=== PATIENT | male | born 1960 | race Caucasian/White ===

== ENCOUNTER 2017-11-17 10:17 | Day surgery (SDC) | payer OTHER ==
[~2017-11-17] VITALS: Ht 170.2 cm; Wt 76.7 kg
[~2017-11-17 10:17] MED LIST: ALLO300 PO; COLCHICINE0.6 MG PO
== END 2017-11-17 12:14 | disposition home or self-care (01) ==
LOC: ORSCMMR 10:17 → ORD 11:30 → ORSCMMR 12:14
PROVIDERS: Internal Medicine Gastroenterology
PROC: 0DBM8ZX Excision of Descending Colon, Via Natural or Artificial Opening Endoscopic, Diagnostic (ICD-10-PCS; principal; 2017-11-17 11:30)
PROC: 0DBK8ZX Excision of Ascending Colon, Via Natural or Artificial Opening Endoscopic, Diagnostic (ICD-10-PCS; principal; 2017-11-17 11:30)
PROC: 0DBN8ZX Excision of Sigmoid Colon, Via Natural or Artificial Opening Endoscopic, Diagnostic (ICD-10-PCS; principal; 2017-11-17 11:30)
DX: Z12.11 Encounter for screening for malignant neoplasm of colon (principal); K63.5 Polyp of colon; D12.2 Benign neoplasm of ascending colon; D12.4 Benign neoplasm of descending colon; K64.8 Other hemorrhoids; Z87.891 Personal history of nicotine dependence; Z79.899 Other long term (current) drug therapy
CPT/HCPCS: 88305; J7120

== ENCOUNTER 2022-09-13 09:12 | Day surgery (SDC) | payer OTHER ==
[~2022-09-13] VITALS: Ht 170.2 cm; Wt 70.8 kg
[2022-09-13] MEDS ORDERED: NAPR500 (09:28)
[2022-09-13] MEDS ORDERED: LOSA50 (09:28)
[2022-09-13] MEDS ORDERED: SILD50TA (09:28)
== END 2022-09-13 11:30 | disposition home or self-care (01) ==
LOC: ORSCSDS 09:12
PROVIDERS: Surgery
PROC: 0DH63UZ Insertion of Feeding Device into Stomach, Percutaneous Approach (ICD-10-PCS; principal; 2022-09-13 10:15)
DX: C10.8 Malignant neoplasm of overlapping sites of oropharynx (principal); I10 Essential (primary) hypertension; Z87.891 Personal history of nicotine dependence; Z79.899 Other long term (current) drug therapy
CPT/HCPCS: C1769; J0690; J2704; J7120

== ENCOUNTER 2022-11-03 02:04 | Day surgery (SDC) | payer OTHER ==
[~2022-11-03 02:04] MED LIST changes: +LOSA50 PO; +NAPR500; +Norco 5-325 Ta1 EACH PO; +ONDA4 PO; +SILD50TA
== END 2022-11-03 12:06 | disposition home or self-care (01) ==
LOC: ATC 02:04
DX: E86.0 Dehydration (principal); C10.8 Malignant neoplasm of overlapping sites of oropharynx
CPT/HCPCS: 96360; J7030

== ENCOUNTER 2023-01-21 11:39 | Inpatient (IN) | payer OTHER ==
[~2023-01-21] VITALS: Ht 170.2 cm; Wt 63.1 kg
[2023-01-21] VITALS (26 sets, daily range): BP systolic 126–172; BP diastolic 74–111
[2023-01-21 13:10] LABS: Albumin, Blood 2.7 g/dL (3.4-5.0); Albumin/Globulin Ratio 0.5 (0.8-1.8); Bilirubin, Total 0.3 mg/dL (0.1-1.0); Bun/Creatinine Ratio 26.9 (12.0-20.0); Calcium, Blood 9.9 mg/dL (8.5-10.1); Creatinine, Blood 0.67 mg/dL (0.60-1.20); Globulin, Blood 5.2 g/dL (2.2-4.0); Hematocrit 36.3 % (37.0-53.0); Hemoglobin 12.4 g/dL (13.5-17.5); Mean Corpuscular HGB 32.4 pg (26.0-34.0); Mean Corpuscular HGB Conc 34.2 g/dL (31.5-36.5); Mean Corpuscular Volume 95 fL (80-100); Mean Platelet Volume 9.7 fL (9.1-12.4); Platelet Count 434 K/mm3 (150-400); Potassium, Blood 4.9 mmol/L (3.5-5.5); Red Blood Cell Count 3.83 M/mm3 (4.30-5.90); Total Protein, Blood 7.9 g/dL (6.4-8.2); White Blood Cell Count 10.14 K/mm3 (4.00-11.30)
[2023-01-21 13:17] LABS: International Normalized Ratio 1.05
[2023-01-21] MEDS ORDERED: [UNRECOGNIZED DRUG - CODE] PO (13:50)
[2023-01-21 14:04] LABS: BAND PERCENT MAN 2 % (0-8); BASOPHILS PERCENT MAN 1 % (0-2); EOSINOPHILS PERCENT MAN 1 % (0-6); LYMPHOCYTES PERCENT MAN 7 % (21-46); MONOCYTES ABSOLUTE MAN 1.11 K/mm3 (0.16-1.47); MONOCYTES PERCENT MAN 11 % (4-13); NEUTROPHILS ABSOLUTE MAN 8.11 K/mm3 (1.96-9.15); SEG NEUTROPHILS PERCENT MAN 78 % (41-73); TOTAL CELLS COUNTED 100
--- NOTE | 2023-01-21 16:08 | NUR ---
01/21/23 1608 Sheryl Pretty LIDOCAIN 1% INJECTED INTO THE OP SITE BY DR. VAUGHN. A TOTAL OF 21ML USED.
--- NOTE | 2023-01-21 18:12 | NUR ---
PT TAKEN TO RADIOLOGY CT TECHNOLOGIST AT APPROXIMATELY 1745. VS STABLE AT TIME OF TRANSPORT, AND DAUGHTER AT BEDSIDE, ACCOMPANIED PT TO [facility].
--- NOTE | 2023-01-21 18:22 | NUR ---
Summary. Pt arrived in ICU at approximately 1538. Report received from OR staff at bedside. Pt awake, responding to questions and following commands. Trach in place, site wnl, no bleeding noted. Pt coughing red sputum up through trach tube occasionally. Blowby humidified 02 at 25% put in place by RT. Dr. Judd in to see pt at approximately 1600. Pt taken to labor service representative at 1745 for procedure, family at bedside, see note. Pt vitals stable at time of transport. See assessment for further details, will report off to reji BRUNO prior to pt returning from labor service representative.
[2023-01-22] VITALS (23 sets, daily range): BP systolic 106–149; BP diastolic 74–92
[2023-01-22 04:06] LABS: BASOPHILS ABSOLUTE AUTO 0.05 K/mm3 (0.00-0.23); BASOPHILS PERCENT AUTO 0 % (0-2); EOSINOPHILS ABSOLUTE AUTO 0.01 K/mm3 (0.00-0.68); EOSINOPHILS PERCENT AUTO 0 % (0-6); Hematocrit 31.9 % (37.0-53.0); Hemoglobin 11.1 g/dL (13.5-17.5); IMMATURE GRAN ABSOLUTE AUTO 0.07 K/mm3 (0.00-0.10); IMMATURE GRAN PERCENT AUTO 1 % (0-1); LYMPHOCYTES ABSOLUTE AUTO 0.44 K/mm3 (0.84-5.20); LYMPHOCYTES PERCENT AUTO 3 % (21-46); MONOCYTES ABSOLUTE AUTO 1.08 K/mm3 (0.16-1.47); MONOCYTES PERCENT AUTO 8 % (4-13); Mean Corpuscular HGB 32.4 pg (26.0-34.0); Mean Corpuscular HGB Conc 34.8 g/dL (31.5-36.5); Mean Corpuscular Volume 93 fL (80-100); Mean Platelet Volume 9.4 fL (9.1-12.4); NEUTROPHILS ABSOLUTE AUTO 12.47 K/mm3 (1.96-9.15); NEUTROPHILS PERCENT AUTO 88 % (41-73); Platelet Count 416 K/mm3 (150-400); RDW Coefficient Variation 12.1 % (11.7-14.2); RDW Standard Deviation 41.7 fL (35.1-46.3); Red Blood Cell Count 3.43 M/mm3 (4.30-5.90); White Blood Cell Count 14.12 K/mm3 (4.00-11.30)
[2023-01-22 05:05] LABS: Albumin, Blood 2.3 g/dL (3.4-5.0); Albumin/Globulin Ratio 0.5 (0.8-1.8); Bilirubin, Total 0.5 mg/dL (0.1-1.0); Bun/Creatinine Ratio 20.7 (12.0-20.0); Calcium, Blood 9.1 mg/dL (8.5-10.1); Creatinine, Blood 0.73 mg/dL (0.60-1.20); Globulin, Blood 4.5 g/dL (2.2-4.0); Magnesium, Blood 1.8 mg/dL (1.6-2.4); Potassium, Blood 4.5 mmol/L (3.5-5.5); Total Protein, Blood 6.8 g/dL (6.4-8.2)
--- NOTE | 2023-01-22 06:20 | NUR ---
SHIFT SUMMARY: Pt arrived from orthodontic lab technician right at shift change. Trach site clean/dry/intact, on trach mask. Right femoral post- cath site is clean/dry/intact and soft. Medicated for pain with morphine x1 and fentanyl x1 overnight. Pt has a moderate amount of maroon, thick sputum out of trach. Cleaned site multiple times. Voiding independently with urinal. Vitals stable overnight, mild tachycardia in the low 100s.
--- NOTE | 2023-01-22 06:53 | NUR ---
Assumed care. Report received from reji BRUNO. Pt sleeping in bed at time of report. On RA, NS infusing at 75 ml/hr. R/angioseal site wnl. Pt on trach collar, 25%. No acute needs. Will continue to monitor.
[2023-01-22] MEDS ORDERED: LOSARTAN POTAS100 M1 PO (11:25)
[2023-01-22] MEDS ORDERED: NAPR500 PO (11:26)
[2023-01-22] MEDS ORDERED: ONDA4ODT MM (11:27)
[2023-01-22] MEDS ORDERED: SILD50TA PO (11:28)
[2023-01-22 15:39] LABS: BASOPHILS ABSOLUTE AUTO 0.06 K/mm3 (0.00-0.23); BASOPHILS PERCENT AUTO 0 % (0-2); EOSINOPHILS ABSOLUTE AUTO 0.02 K/mm3 (0.00-0.68); EOSINOPHILS PERCENT AUTO 0 % (0-6); Hematocrit 34.3 % (37.0-53.0); IMMATURE GRAN ABSOLUTE AUTO 0.05 K/mm3 (0.00-0.10); IMMATURE GRAN PERCENT AUTO 0 % (0-1); LYMPHOCYTES ABSOLUTE AUTO 0.57 K/mm3 (0.84-5.20); LYMPHOCYTES PERCENT AUTO 4 % (21-46); MONOCYTES ABSOLUTE AUTO 0.78 K/mm3 (0.16-1.47); MONOCYTES PERCENT AUTO 6 % (4-13); Mean Corpuscular HGB 32.8 pg (26.0-34.0); Mean Corpuscular Volume 94 fL (80-100); Mean Platelet Volume 9.1 fL (9.1-12.4); NEUTROPHILS ABSOLUTE AUTO 12.37 K/mm3 (1.96-9.15); NEUTROPHILS PERCENT AUTO 89 % (41-73); Platelet Count 487 K/mm3 (150-400); RDW Coefficient Variation 12.2 % (11.7-14.2); RDW Standard Deviation 41.9 fL (35.1-46.3); Red Blood Cell Count 3.66 M/mm3 (4.30-5.90); White Blood Cell Count 13.85 K/mm3 (4.00-11.30)
--- NOTE | 2023-01-22 18:38 | NUR ---
Shift summary. Pt rested in bed for most of the shift. Up to chair during PT, able to remain up for about an hour. Pt able to tolerate trach collar off without any change in oxygen saturation levels, even during exhertion. PCU status. Cultures taken, antibiotics started per Dr. Harrison, see chart. No acute events this shift, pt slightly tachy and htn during shift, VS otherwise normal. See chart for further details. Will continue to monitor and report off to reji BRUNO.
--- NOTE | 2023-01-22 19:15 | NUR ---
ASSUMED CARE PATIENT LYING IN BED WITH EYES CLOSED. TRACH COLAR IN PLACE. VANCOMYCIN INF TO RT AC. AND DAUGHTER AT BEDSIDE. PATIENT OPENS EYES TO VERBAL AND PHYSICAL STIMULI. FOLLOWS COMMANDS AND ANSWERS QUESTIONS WITH GESTURES. MAKES NEEDS KNOWN TO STAFF WITH CALL LIGHT. MONITOR SHOWS SINUS TACHYCARDIA WITH RATE IN 120'S. SPO2 GREATER THAN 90%. RT GROIN ACCESS SITE HAS OPSITE IN PLACE-C/D/I. NO SWELLING, BLEEDING, HEMATOMA OR PAIN NOTED. REPORT COMPLETED WITH KIANA NAVARRETE.
[2023-01-22 21:18] LABS: Source, Urine Clean Catch
[2023-01-22 21:26] LABS: Appearance, Urine Clear (Clear); Bilirubin, Urine Neg (Neg); Blood, Urine 1+ (Neg); Color, Urine Yellow (P-Yellow); Glucose Qualitative, Urine Neg (Neg); Ketones, Urine Neg (Neg); Leukocyte Esterase, Urine Neg (Neg); Nitrite, Urine Neg (Neg); Protein, Urine 1+ (Neg); Specific Gravity, Urine 1.015 (1.003-1.022); Urobilinogen, Urine NORM (Normal)
[2023-01-22 21:39] LABS: Bacteria Not Seen /hpf; Red Blood Cells, Urine 0-2 /hpf (0-2); Squamous Epithelial Cells Few /hpf (Few); White Blood Cells, Urine 0-2 /hpf (0-5)
[2023-01-23] VITALS (13 sets, daily range): BP systolic 107–166; BP diastolic 67–119
[2023-01-23 03:25] LABS: BASOPHILS ABSOLUTE AUTO 0.06 K/mm3 (0.00-0.23); BASOPHILS PERCENT AUTO 1 % (0-2); EOSINOPHILS ABSOLUTE AUTO 0.11 K/mm3 (0.00-0.68); EOSINOPHILS PERCENT AUTO 1 % (0-6); Hematocrit 31.2 % (37.0-53.0); Hemoglobin 10.7 g/dL (13.5-17.5); IMMATURE GRAN ABSOLUTE AUTO 0.04 K/mm3 (0.00-0.10); IMMATURE GRAN PERCENT AUTO 0 % (0-1); LYMPHOCYTES ABSOLUTE AUTO 0.48 K/mm3 (0.84-5.20); LYMPHOCYTES PERCENT AUTO 4 % (21-46); MONOCYTES ABSOLUTE AUTO 0.83 K/mm3 (0.16-1.47); MONOCYTES PERCENT AUTO 7 % (4-13); Mean Corpuscular HGB 32.5 pg (26.0-34.0); Mean Corpuscular HGB Conc 34.3 g/dL (31.5-36.5); Mean Corpuscular Volume 95 fL (80-100); Mean Platelet Volume 8.8 fL (9.1-12.4); NEUTROPHILS ABSOLUTE AUTO 9.63 K/mm3 (1.96-9.15); NEUTROPHILS PERCENT AUTO 86 % (41-73); Platelet Count 379 K/mm3 (150-400); RDW Coefficient Variation 12.1 % (11.7-14.2); RDW Standard Deviation 42.3 fL (35.1-46.3); Red Blood Cell Count 3.29 M/mm3 (4.30-5.90); White Blood Cell Count 11.15 K/mm3 (4.00-11.30)
[2023-01-23 03:50] LABS: Bun/Creatinine Ratio 27.8 (12.0-20.0); Creatinine, Blood 0.68 mg/dL (0.60-1.20); Phosphorus, Blood 2.4 mg/dL (2.5-4.9); Potassium, Blood 4.4 mmol/L (3.5-5.5)
--- NOTE | 2023-01-23 04:12 | NUR ---
SHIFT SUMMARY PATIENT SLEPT THROUGHOUT NIGHT. MEDICATED FOR PAIN PER EMAR. TRACH DRESSING CHANGED BY RT. REMAINED AT BEDSIDE T/O SHIFT. PATIENT WAS ABLE TO MAKE NEEDS KNOWN TO STAFF. NO ACUTE EVENTS OVERNIGHT.
--- NOTE | 2023-01-23 08:40 | NUR ---
AM NOTE... ASSUMED CARE OF PT AT 0700, PT IS A&Ox4. TRACH IS STABLE WITH A 25% BLOW BY WITH O2 SATS >90% L/S CLEAR T/O. TRACH HAS COPIOUS AMOUNTS OF THICK LIGHT JEAN-BAPTISTE SECRETIONS, TRACH CARE AND SUCTIONING DONE THIS AM. HE IS IN SR W/PACs AND PVCs IN THE 90'S. BP IS STABLE WITH MAPS >65. BT PRESENT AND HYPOACTIVE, ABD IS SOFT AND NONTENDER TO PALPATION. PEG TUBE IS PATENT AND BOLUS FEEDS STARTED. PT'S IS AT THE BEDSIDE, TRACH CLEANING AND EDUCATION PROVIDED TO THE . WILL CONTINUE TO MONITOR.
--- NOTE | 2023-01-23 13:41 | NUR ---
TRANSFER.... PT TRANSFER TO MEDICAL FLOOR. REPORT GIVEN TO JACKY SNOW RN. ALL OF PT'S BELONGINGS PACKED AND SENT WITH THE PT. PT'S VS STABLE.
--- NOTE | 2023-01-23 16:20 | NUR ---
ASSUMED CARE IN 303 PT ARRIVED FROM THE ICU VIA WC BROUGHT UP BY INVESTMENT DIRECTOR AND HIS , TRANSFERRED TO HIS NEW BED, SUCTION SET UP, HUMIDIFIER BROUGHT UP AND SETTINGS VERIFIED BY RT. SMALL AMT OF SECRETIONS PRESENT ON TRACH AT TIME OF ARRIVAL, PER INVESTMENT DIRECTOR THIS HAS BEEN NORMAL FOR HIM, THIS WAS CLEANED UP AND FRESH GAUZE PLACED AROUND TRACH, SUCTIONING PERFORMED BUT ONLY ABLE TO GET SCANT AMOUNT. PT AND HIS DENY ANY NEEDS AT TIME OF ARRIVAL.
--- NOTE | 2023-01-23 18:59 | NUR ---
SHIFT SUMMARY S/P TRACH PLACEMENT, A/OX4, VSS, TOLERATING TUBE FEEDS, NPO, NEEDING INTERMINTENT SUCTION TO CLEAR TRACH SECRETIONS, AT BEDSIDE ASSISTING WITH ADL CARE. NO EVENTS THIS SHIFT, CALL LIGHT IN REACH.
--- NOTE | 2023-01-23 22:22 | NUR ---
STARTED PEG TUBE FEED - LAST ONE FOR THE NIGHT - PER KIANA LAZO LAST FEED WAS STARTED LATE. , IN ROOM CONCERNED THAT THE FEED IS GETTING STARTED LATER THAN NORMAL, REPORTED THIS WAS DUE TO LAST FEED STARTED LATE. AND PT REQUESTING FEED BE PLACE ON KANGEROO PUMP, NOT BOLUS/GRAVITY FEED. ADMINISTERED 2 BOTTLES TWO DASHAWN HN WITH 1 CUP WATER AT 400 CC HOUR PER CURRENT PUMP SETTINGS WITH 60CC FLUSH. REPORTED TO VIOLET BRUNO ABOVE.
--- NOTE | 2023-01-24 03:32 | NUR ---
SHIFT KATHI, PT AT THIS TIME RESTING IN BED, AT BEDSIDE IN RECLINER, OTHER FAMILY MEMBERS HERE CAMMIELYER. FAMILY VERY INVOVED IN PT CARES AND WANTING TO KNOW WHAT IS BEING GIVEN AND CCCALL LIGN FOR PT NEEDS, FAMILY VERY WORRIED ABOUT PT AND VERY PROTECTIVE. GAVE PT TORADOL FOR PAIN. LATTER ANOTHER RN THAT I HAD ASKED TO HELP GIVE PT SOME MEDS CAFME OUT AND STATED FAMILY UPSET DUE TO IN ICU THEY GAVE TORADOK AND HYDROCODONE AT THE SAME TIME. FAMILY NOR PT HAD TOLD OR NOTIFIED THIS NURSE OF HOW PT USUALY GIVEN HIS MEDS. THIS NURSE CHARGE AND FLOAT NURSE THAT WAS HELPING, IN ROOM WITH PT DOING THINGS FOR PT SEVERAL TIMES WELL RT IN ROOM MULTIPLE TIMES. FAMILY VERY ANXIOUS. PT HAD A INCONT LIQ BM AND SAID SHE DID NOT WANT PT TO HAVE A PROBIOTIC AGAIN TRYED TO EXSPLANE THAT THE PROBIOTIC WAS TO HELP PREVENT THE DIARRIA, AND PROB WAS CHANGE IN PTS FEEDING FORMULA OR ANITBIOTIC. PT VERY PRIVIET AND ONLY WANTS TO HELP WITH BATHROOM AND BATHING NOT STAFF. CALL LIGHT IN REACH.
[2023-01-24 04:28] VITALS: BP 121/72
[2023-01-24 04:47] LABS: BASOPHILS ABSOLUTE AUTO 0.05 K/mm3 (0.00-0.23); BASOPHILS PERCENT AUTO 1 % (0-2); EOSINOPHILS ABSOLUTE AUTO 0.43 K/mm3 (0.00-0.68); EOSINOPHILS PERCENT AUTO 4 % (0-6); Hematocrit 29.7 % (37.0-53.0); Hemoglobin 10.3 g/dL (13.5-17.5); IMMATURE GRAN ABSOLUTE AUTO 0.04 K/mm3 (0.00-0.10); IMMATURE GRAN PERCENT AUTO 0 % (0-1); LYMPHOCYTES ABSOLUTE AUTO 0.43 K/mm3 (0.84-5.20); LYMPHOCYTES PERCENT AUTO 4 % (21-46); MONOCYTES ABSOLUTE AUTO 0.79 K/mm3 (0.16-1.47); MONOCYTES PERCENT AUTO 7 % (4-13); Mean Corpuscular HGB 32.6 pg (26.0-34.0); Mean Corpuscular HGB Conc 34.7 g/dL (31.5-36.5); Mean Corpuscular Volume 94 fL (80-100); Mean Platelet Volume 9.3 fL (9.1-12.4); NEUTROPHILS ABSOLUTE AUTO 9.17 K/mm3 (1.96-9.15); NEUTROPHILS PERCENT AUTO 84 % (41-73); Platelet Count 397 K/mm3 (150-400); RDW Coefficient Variation 12.1 % (11.7-14.2); RDW Standard Deviation 41.8 fL (35.1-46.3); Red Blood Cell Count 3.16 M/mm3 (4.30-5.90); White Blood Cell Count 10.91 K/mm3 (4.00-11.30)
[2023-01-24 05:15] LABS: Vancomycin, Trough 10.3 ug/mL (5.0-10.0)
[2023-01-24 05:33] LABS: Bun/Creatinine Ratio 35.8 (12.0-20.0); Calcium, Blood 8.7 mg/dL (8.5-10.1); Creatinine, Blood 0.59 mg/dL (0.60-1.20); Magnesium, Blood 1.9 mg/dL (1.6-2.4); Phosphorus, Blood 2.5 mg/dL (2.5-4.9); Potassium, Blood 3.8 mmol/L (3.5-5.5)
[2023-01-24 07:37] VITALS: BP 122/73
[2023-01-24 15:21] VITALS: BP 126/84
--- NOTE | 2023-01-24 19:50 | NUR ---
SHIFT SUMMARY PT A&OX4 AND COOPERATIVE OF CARE. AT BEDSIDE T/O DAY AND HELPS WITH PT CARE AND COMMUNICATION. RT WORKED WITH PT AND SUCTIONED TRACH TUBE NEEDED. PT C/O PAIN IN NECK TODAY AND WAS MEDICATED PER EMAR WITH GOOD EFFECT. IN AFTERNOON PT STATED HE WANTED TRACH REMOVED. DR RG CAME TO TALK WITH PT IN AFTERNOON ABOUT WISHES. DR VAUGHN CALLED IN EVENING TO TALK WITH PT AND ABOUT CONCERNS. PT AND STATED DR VAUGHN WAS ABLE TO ANSWER ALL THEIR QUESTIONS AND CONCERNS. PT TOLERATING PEG TUBE FEEDINGS. VSS. BED IN LOWEST POSITION AND CALL LIGHT IN REACH.
[2023-01-24 20:05] VITALS: BP 127/78
--- NOTE | 2023-01-25 03:41 | NUR ---
SHIFT SUMMERY, PT RESTING IN BED, PT APPEARS TO BE COMFORTABLE. PT MEDICATED FOR PAIN X 2 THIS NIGHT. PTS AT BEDSIDE ON RECLINER SLEEPING BUT AWAKING TO HELP PT WITH HIS NEEDS. AND PT SEEM MORE COMFORTABLE TONIGHT AND LESS SUSPECT OF STAFF AND PTS TX. CALL LIGHT IN REACH.
[2023-01-25 04:43] VITALS: BP 125/83
[2023-01-25 05:32] LABS: Bun/Creatinine Ratio 32.5 (12.0-20.0); Calcium, Blood 8.4 mg/dL (8.5-10.1); Creatinine, Blood 0.62 mg/dL (0.60-1.20); Magnesium, Blood 1.9 mg/dL (1.6-2.4); Phosphorus, Blood 3.5 mg/dL (2.5-4.9); Potassium, Blood 3.8 mmol/L (3.5-5.5)
[2023-01-25 07:06] VITALS: BP 134/82
--- NOTE | 2023-01-25 12:29 | NUR ---
PT FAMILY REQUESTING H&H DUE TO CONCERN OF INTERNAL BLEEDING SPOUSE NOTED PT DOES NOT TAKE COZZAR AT HOME ANYMORE, SPOUSE WOULD LIKE MED TO BE DISCONTINUED.
[2023-01-25 15:19] VITALS: BP 130/82
--- NOTE | 2023-01-25 17:08 | NUR ---
SHIFT SUMMARY PT A&OX4 AND IN PLEASENT MOOD T/O SHIFT. FAMILY IN AND ASSISTING W/ CARE T/O SHIFT. TUBE FEEDINGS ORDERED. VSS. TRACH IN PLACE. VSS. CALL LIGHT W/IN REACH. NPO, SWALLOW EVAL THIS SHIFT. PLAN FOR VOICEBOX ON FRIDAY-PT WRITING FOR COMMUNICATION AT THIS TIME.
[2023-01-25 19:27] VITALS: BP 147/87
--- NOTE | 2023-01-25 20:58 | NUR ---
TUBE FEEDS PT REFUSED HIS 2000 TUBE FEED. PT LAST FEED WAS AROUND 1400 PER PT. I WENT TO CHECK RESIDUAL AND PULLED BACK A FULL SYRINGE ABOUT 100 CC BEFORE HE ASKED ME TO STOP CHECKING HIS RESIDUAL, RESIDUAL REINSTILLED. PT STATED THAT HE STILL FELT FULL AND DID NOT WANT HIS TUBE FEED THIS EVENING.
--- NOTE | 2023-01-25 21:13 | NUR ---
SWELLING R SIDE OF NECK-MD NOTIFIED PT AND HAVE CONCERNS ABOUT INCREASED PAIN AND SWELLING ON THE RIGHT SIDE OF HIS NECK. TRACH IS IN PLACE AND AIRWAY IS NOT COMPROMISED AT THIS TIME, SATS WNL, LUNGS ARE DIMISNIED. NO ACUTE DISTRESS AT THIS TIME. PT STATES THAT THE SAME SWELLING HAD HAPPENDED BEFORE AT HOME AND THAT THE REACTION WAS SEVERE, AND SHE IS CONCERNED FOR THE SAME OUTCOME THIS TIME. [facility] RN REPORTS THAT SHE NOTIFIED DR. GAYLE SHORTLY BEFORE SHIFT CHANGE, AND HE STATED THAT HE WOULD BE UP TO ROUND ON PT AND ASSESS. DR. GAYLE STILL HAS NOT BEEN UP TO SEE PT. PT AND STATE THAT IF NO ONE IS ABLE TO ADDRESS TONIGHT THAT THEY WOULD LIKE TO BE TRANSFERRED. I NOTIFIED PT AND FAMILY THAT I HAD DISCUSSED WITH CHARGE NURSE AND THAT I WOULD CALL DR. GAYLE TO REMIND HIM AND GET AND ETA OF WHEN HE WOULD BE UP TO SEE THEM. DR. LONG CALLED SHORTLY AFTER DISCUSSION WITH PT AND . HE STATES THAT HE WILL BE UP TO SEE PT IN ABOUT AN HOUR, PT AND NOTIFIED. I LET THEM KNOW THAT AUTO RENTAL SUPERVISOR WOULD BE NOTIFIED IF PROVIDER STILL HAD NOT BEEN UP TO SEE THEM. THEY EXPRESSED UNDERSTANDING AND AGREEMENT WITH PLAN.
--- NOTE | 2023-01-25 21:41 | NUR ---
PROVIDER IN ROOM DR GAYLE IN TO ASSESS PT FOR RIGHT FACIAL SWWELLING AT 2140. HE ORDERED A STAT H&H AND ASKED THAT DR. VAUGHN BE CONTACTED IN THE AM FOR FURTHER ASSESSEMENT OF PT. LABS ORDERED AND NURSE NOTIFY ENTERED FOR DAYSHIFT RN TO FOLLOW UP WITH DR. VAUGHN. NO ADDITIONAL ORDERS FOR FACIAL SWELLING.
[2023-01-25 22:48] LABS: Hematocrit 32.1 % (37.0-53.0); Hemoglobin 11.1 g/dL (13.5-17.5)
[2023-01-26 04:53] VITALS: BP 138/90
--- NOTE | 2023-01-26 04:57 | NUR ---
SHIFT SUMMARY PT HAS RIGHT JAW SWELLING, SKIN RED INFLAMMED AND PT REPORTS PAIN. PT AND FAMILY AND CONCERED WITH SWELLING. PT AND FAMILY CONCERNS WERE ADDRESSED THIS SHIFT. DR. GAYLE NOTIFIED AND ROUNDED ON PT THIS SHIFT, PLEASE SEE PRIOR NURSES NOTE. LABS ORDERED, H&H STABLE. DR. GAYLE WOULD LIKE DR. VAUGHN TO ASSESS PT TODAY TO FURTHER ADDRESS THE SWELLING. SWELLING HAS REMAIN UNCHANGED T/O SHIFT AND AIRWAY IS NOT COMPROMISED. TRACH WITH BLOWBY O2. SATS WNL. THICK CLEAR SPUTUM, WITH NO BLOOD NOTED. PT REFUSED 2000 FEEDS AND REPORTS THAT HE FELT FULL. ONE FULL SYRINGE OF RESIDUAL WAS PULLED AND REINSTILLED. IV ANTIBIOTICS CONTINUED ORDERED. LOW GRADE FEVER, VITALS OTHERWISE STABLE. AT BEDSIDE AND ATTENDS TO PT NEEDS. MEDICATED FOR PAIN PRN PER EMAR. BED IN LOWEST POSITION CALL LIGHT WITHIN REACH.
[2023-01-26 07:10] LABS: BASOPHILS ABSOLUTE AUTO 0.07 K/mm3 (0.00-0.23); BASOPHILS PERCENT AUTO 1 % (0-2); EOSINOPHILS ABSOLUTE AUTO 0.41 K/mm3 (0.00-0.68); EOSINOPHILS PERCENT AUTO 4 % (0-6); Hematocrit 29.4 % (37.0-53.0); Hemoglobin 10.2 g/dL (13.5-17.5); IMMATURE GRAN ABSOLUTE AUTO 0.16 K/mm3 (0.00-0.10); IMMATURE GRAN PERCENT AUTO 2 % (0-1); LYMPHOCYTES ABSOLUTE AUTO 0.47 K/mm3 (0.84-5.20); LYMPHOCYTES PERCENT AUTO 5 % (21-46); MONOCYTES ABSOLUTE AUTO 0.96 K/mm3 (0.16-1.47); MONOCYTES PERCENT AUTO 10 % (4-13); Mean Corpuscular HGB 32.1 pg (26.0-34.0); Mean Corpuscular HGB Conc 34.7 g/dL (31.5-36.5); Mean Corpuscular Volume 93 fL (80-100); Mean Platelet Volume 8.7 fL (9.1-12.4); NEUTROPHILS ABSOLUTE AUTO 7.79 K/mm3 (1.96-9.15); NEUTROPHILS PERCENT AUTO 79 % (41-73); Platelet Count 468 K/mm3 (150-400); RDW Coefficient Variation 12.1 % (11.7-14.2); RDW Standard Deviation 41.1 fL (35.1-46.3); Red Blood Cell Count 3.18 M/mm3 (4.30-5.90); White Blood Cell Count 9.86 K/mm3 (4.00-11.30)
[2023-01-26 07:23] VITALS: BP 130/84
[2023-01-26 07:29] LABS: Albumin/Globulin Ratio 0.5 (0.8-1.8); Bilirubin, Total 0.3 mg/dL (0.1-1.0); Bun/Creatinine Ratio 21.7 (12.0-20.0); Calcium, Blood 8.9 mg/dL (8.5-10.1); Creatinine, Blood 0.64 mg/dL (0.60-1.20); Globulin, Blood 4.3 g/dL (2.2-4.0); Potassium, Blood 4.4 mmol/L (3.5-5.5); Total Protein, Blood 6.3 g/dL (6.4-8.2)
[2023-01-26 16:14] VITALS: BP 132/82
--- NOTE | 2023-01-26 17:52 | NUR ---
SHIFT SUMMARY PT A&OX4 AND IN PLEASENT MOOD T/O SHIFT. TUBE FEEDING ORDERED. TRACH CARE PROVIDED. IND IN ROOM. PAIN MEDICATED PER EMAR. NECK CT PERFORMED THIS SHIFT, PLAN TO CHEST CT TOMORROW DUE TO CONTRAST. VSS. CALL LIGHT W/IN REACH. PT STATES HE WANTS TO DC TOMORROW AFTER SEEING DR. VAUGHN.
[2023-01-26 19:28] VITALS: BP 121/83
[2023-01-27 04:18] VITALS: BP 123/83
--- NOTE | 2023-01-27 04:29 | NUR ---
SHIFT SUMMARY: CRISTOPHER IS A&OX4. VSS, NO ACUTE EVENTS THIS SHIFT. AT BEDSIDE WHO PROVIDES CARES AND ADMINISTERED THE BEDTIME FEED. SHE ALSO ASSISTED HIM TO SHOWER THIS SHIFT. IV TO LEFT HAND AND R AC PATENT. TRACHEOSTOMY PATENT AND PT USING BLOWBY VIA MASK, RT PERFORMING SCHEDULED SUCTION. PT HAS BEEN COUGHING SOME THICK WHITE/YELLOW SPUTUM THROUGH TRACH. HE IS INDEPENDENT IN THE ROOM, G-TUBE PATENT, DENIES ANY DIFFICULTY URINATING. HE IS NPO. PT IS LYING IN BED WITH THE CALL LIGHT IN REACH. HE HAS BEEN MEDICATED WITH TORADOL AND MORPHINE THIS SHIFT WHICH HE REPORTED PROVIDED ADEQUATE RELIEF OF THE JAW PAIN/SWELLING. WCTM UNTIL REPORT IS GIVEN TO DAY SHIFT RN.
[2023-01-27 07:32] VITALS: BP 117/73
--- NOTE | 2023-01-27 12:00 | NUR ---
Initial Pal Care visit made to pt and at bedside. Ching was providing care and cleaning around pt's new trach as I entered the room. Pt awake, alert and fully participating in the conversation. expressed misunderstanding that Pal Care was the same as hospice. We reviewed differences and that hospice was indeed palliative care but there were many other components of palliative care outside of hospice and that I was not there to discuss hospice but to discuss anything that was important to Derick and Ching. Pt expressed relief that he was going home today and that Dr Suarez would be removing trach later this week. They'd had a number of conversations with Drs over the past 24-48 hours that clarified and helped them feel more at ease with pt's current situation with his throat cancer and post tx sequelae. Of concern, is a possible lung nodule noted recently and pt awaiting a PET scan for further diagnostics. PET scan has been rescheduled for 2 weeks from now, which is also a relief to pt/. Pt does not have a clear understanding of his prognosis from oncology team and he has not seen them since early Spring when chemo/rad tx was finished. His own statement of prognosis is, "I'm not going anywhere". Cihng and Derick both indicate they are hopeful and planning on curative tx and their desire to seek all possible treatment, regardless of PET scan results. Time spent listening and offering support, advised on questions to ask of their providers for future advanced care planning. Pt wanted to try drinking pepsi. He is NPO. However, Dr Suarez told pt, and RN he could have PO intake and pt is being d/c'd home. Pt gets most of intake thru gtube. With RN's permission, I trialed pt with small spoonful/sip of pepsi. HOB raised and pt coached to [facility] with very small sip off spoon to start. No s/s of aspiration, cough, change in voice noted and pt reported he did not feel or sense any fluid in airway. I asked pt to only try small amounts of PO intake with either his or staff in the room at this time. He verbalized understanding. Pt and deny any further needs currently.
[2023-01-27] MEDS ORDERED: Docusate S50 MG/5 ML PO (12:25)
[2023-01-27] MEDS ORDERED: VISBIOME 112.51 EACH PO (12:26)
[2023-01-27] MEDS ORDERED: AMOCLA875 PO (12:26)
[2023-01-27] MEDS ORDERED: IBU800 MG PO (12:27)
[2023-01-27] MEDS ORDERED: Prevacid Soluta30 MG PO (12:28)
--- NOTE | 2023-01-27 16:09 | NUR ---
DISCHARGE PT A&OX4. TRACH CARE/INSTRUCTIONS PROVIDED[facility]/ [facility]. PLAN TO FOLLOW UP W/ JOHANA FOR PROBABLE REMOVAL TOMORROW. F/U PET SCAN SCHEDULED. VSS. SPOUSE PROVIDING TRANSPORT.
== END 2023-01-27 14:00 | disposition home health service (06) | DRG 11 ==
LOC: ER 11:39 → ICUE 14:07 → ER 14:07 → ICUE 14:07 → SURS 14:07 → ER 14:07 → ICUE 14:08 → MEDS 01-23 15:15 → ENPENDDIS 01-27 11:14 → MEDS 01-27 14:00
PROVIDERS: Emergency Medicine; Family Medicine; Internal Medicine; Otolaryngology; Student in an Organized Health Care Education/Training Program; ADMIT Internal Medicine
PROC: B3191ZZ Fluoroscopy of Right External Carotid Artery using Low Osmolar Contrast (ICD-10-PCS; 2023-01-21)
PROC: B41F1ZZ Fluoroscopy of Right Lower Extremity Arteries using Low Osmolar Contrast (ICD-10-PCS; 2023-01-21)
PROC: B44LZZZ Ultrasonography of Femoral Artery (ICD-10-PCS; 2023-01-21)
PROC: 0B113Z4 Bypass Trachea to Cutaneous, Percutaneous Approach (ICD-10-PCS; 2023-01-21)
PROC: 0CJS8ZZ Inspection of Larynx, Via Natural or Artificial Opening Endoscopic (ICD-10-PCS; 2023-01-21)
PROC: B3131ZZ Fluoroscopy of Right Common Carotid Artery using Low Osmolar Contrast (ICD-10-PCS; principal; 2023-01-21 12:15)
PROC: 3E03329 Introduction of Other Anti-infective into Peripheral Vein, Percutaneous Approach (ICD-10-PCS; 2023-01-22)
DX: C10.8 Malignant neoplasm of overlapping sites of oropharynx (principal); A41.3 Sepsis due to Hemophilus influenzae; E43 Unspecified severe protein-calorie malnutrition; E87.1 Hypo-osmolality and hyponatremia; R91.8 Other nonspecific abnormal finding of lung field; R01.1 Cardiac murmur, unspecified; R91.1 Solitary pulmonary nodule; R04.1 Hemorrhage from throat; J40 Bronchitis, not specified as acute or chronic; I51.89 Other ill-defined heart diseases; I10 Essential (primary) hypertension; M10.9 Gout, unspecified; H65.21 Chronic serous otitis media, right ear; J39.2 Other diseases of pharynx; N52.9 Male erectile dysfunction, unspecified; Z93.1 Gastrostomy status; Z92.3 Personal history of irradiation; Z79.899 Other long term (current) drug therapy; Z79.891 Long term (current) use of opiate analgesic; Z87.891 Personal history of nicotine dependence; Z68.22 Body mass index [BMI] 22.0-22.9, adult; Z92.21 Personal history of antineoplastic chemotherapy
CPT/HCPCS: 31720; 36217; 36222; 36227; 36415; 70491; 70498; 71045; 75774; 80048; 80053; 80202; 81001; 83735; 84100; 84145; 85014; 85018; 85025; 85610; 85730; 87040; 87070; 87077; 87185; 87205; 87449; 92610; 93306; 94760; 94762; 96374-59; 96375; 96376; 97110; 97162; 97166; 99152; 99285-25; A9270; C1760; C1769; C1887; C1894; G0378; J0295; J1644; J1885; J2001; J2250; J2270; J3010; J3370; J7030; J7050; J7120; Q9967

== ENCOUNTER → 2023-02-25 | Outpatient (CLI) | payer OTHER ==
[~2023-02-25] MED LIST changes: +AMOCLA875 PO; +Docusate S50 MG/5 ML PO; +IBU800 MG PO; +LOSARTAN POTAS100 M1 PO; +NAPR500 PO; +ONDA4ODT MM; +Prevacid Soluta30 MG PO; +SILD50TA PO; +VISBIOME 112.51 EACH PO; +[UNRECOGNIZED DRUG - CODE] PO
== END ==
LOC: LAB 12:53 → LAB SHORT 12:53
DX: L03.316 Cellulitis of umbilicus (principal)
CPT/HCPCS: 87070; 87075; 87077; 87186; 87205

== ENCOUNTER 2023-03-12 17:00 | Inpatient (IN) | payer OTHER ==
[~2023-03-12] VITALS: Ht 170.2 cm; Wt 66.4 kg
[2023-03-12 17:35] LABS: BASOPHILS ABSOLUTE AUTO 0.06 K/mm3 (0.00-0.23); BASOPHILS PERCENT AUTO 1 % (0-2); EOSINOPHILS ABSOLUTE AUTO 0.17 K/mm3 (0.00-0.68); EOSINOPHILS PERCENT AUTO 3 % (0-6); Hematocrit 31.6 % (37.0-53.0); Hemoglobin 10.9 g/dL (13.5-17.5); IMMATURE GRAN ABSOLUTE AUTO 0.01 K/mm3 (0.00-0.10); IMMATURE GRAN PERCENT AUTO 0 % (0-1); LYMPHOCYTES ABSOLUTE AUTO 0.55 K/mm3 (0.84-5.20); LYMPHOCYTES PERCENT AUTO 9 % (21-46); MONOCYTES ABSOLUTE AUTO 0.55 K/mm3 (0.16-1.47); MONOCYTES PERCENT AUTO 9 % (4-13); Mean Corpuscular HGB 31.4 pg (26.0-34.0); Mean Corpuscular HGB Conc 34.5 g/dL (31.5-36.5); Mean Corpuscular Volume 91 fL (80-100); Mean Platelet Volume 9.7 fL (9.1-12.4); NEUTROPHILS ABSOLUTE AUTO 5.14 K/mm3 (1.96-9.15); NEUTROPHILS PERCENT AUTO 79 % (41-73); Platelet Count 373 K/mm3 (150-400); RDW Coefficient Variation 13.5 % (11.7-14.2); RDW Standard Deviation 44.9 fL (35.1-46.3); Red Blood Cell Count 3.47 M/mm3 (4.30-5.90); White Blood Cell Count 6.48 K/mm3 (4.00-11.30)
[2023-03-12 18:02] LABS: Albumin, Blood 2.7 g/dL (3.4-5.0); Albumin/Globulin Ratio 0.6 (0.8-1.8); Bilirubin, Total 0.2 mg/dL (0.1-1.0); Bun/Creatinine Ratio 31.7 (12.0-20.0); Creatinine, Blood 0.69 mg/dL (0.60-1.20); Globulin, Blood 4.3 g/dL (2.2-4.0); Potassium, Blood 4.1 mmol/L (3.5-5.5)
[2023-03-12 20:34] LABS: International Normalized Ratio 1.04; Prothrombin Time Results 10.9 Sec (9.7-11.5)
[2023-03-12 21:00] VITALS: BP 138/95
[2023-03-12 21:15] VITALS: BP 138/92
[2023-03-12 22:44] VITALS: BP 127/98
[2023-03-12 22:45] VITALS: BP 124/99
[2023-03-12 23:13] LABS: Hematocrit 29.2 % (37.0-53.0); Hemoglobin 9.5 g/dL (13.5-17.5); Mean Corpuscular HGB 30.9 pg (26.0-34.0); Mean Corpuscular HGB Conc 32.5 g/dL (31.5-36.5); Mean Corpuscular Volume 95 fL (80-100); Mean Platelet Volume 9.6 fL (9.1-12.4); Platelet Count 410 K/mm3 (150-400); RDW Coefficient Variation 13.7 % (11.7-14.2); RDW Standard Deviation 47.8 fL (35.1-46.3); Red Blood Cell Count 3.07 M/mm3 (4.30-5.90)
[2023-03-12 23:30] VITALS: BP 148/92
--- NOTE | 2023-03-12 23:30 | NUR ---
PT TRANSFERS FROM PCU TO ICU 4 SECONDARY TO EXPECTORATING OR EXPELLING BLOOD FROM MOUTH. PT TRANSFERS HIMSELF TO BED FROM PCU BE AND IS EXTREMELY ANXIOUS. PULLS OFF HIS NON-REBREATHER MASK. NEEDS TO BE ASSISTED TO KEEP MASK IN PLACE. DR VAUGHN TO ROOM. DR WOLFE IN ROOM, RESIDENT DR JOSEPH, ORAL SUCTIONING DONE WITH RETURN OF AME BLOOD WITH SOME CLOTS NOTED.
[2023-03-12 23:45] VITALS: BP 141/91
[2023-03-12 23:47] LABS: International Normalized Ratio 1.05
[2023-03-13] VITALS (83 sets, daily range): BP systolic 80–141; BP diastolic 63–92
--- NOTE | 2023-03-13 00:20 | NUR ---
DR VAUGHN DOES EMERGENT TRACHEOTOMY AND PLACES 6 SYRIAC SCHILEY TRACH WITH INNER CANNULA. PT MEDICATED WITH 1 MG VERSED, AND [address] ESCAMILLA COMES TO ROOM. PT PLACED TO VENT. PROPOFOL FOR SEDATION. DR BOYER TO PERFORM INTERVENTION FOR ARTERIAL ABLATION.
--- NOTE | 2023-03-13 00:26 | NUR ---
ADMISSION / TRANSFER TO ICU PT ADMITTED TO UNIT AT 2119. AXO. SPEAKING FULL SENTENCES. ARRIVES WITH EMESIS BAG WITH BLOOD IN IT. DAUGHTER WITH PT AND SPOUSE TO ROOM WITHN 10 MINUTES OF ADMISSION. SPOUSE ANSWERING HEALTH HX QUESTIONS. VSS AT THIS TIME. PT NOT IN DISTRESS. IGNITION ASSESMENT COMPLETED. FAMILY AND PT EDUCATED REGARDING FIRE PREVENTION AND [employer]'S TOBACCO FREE/IGNITION SOURCE FREE ENVIRONMENT. PT C/O PAIN / NAUSEA @2199. RN TO [facility] TO OBTAIN MEDS. PT BEGAN COUGHING UP BLOOD CLOTS, PER SPOUSE IS WHAT HAD BEEN HAPPENING AT HOME AND IN ED. THIS RN ASSISTING PATIENT IN EXPECTORATING "BLOODY CHUNKS" SOME OF THIS PRESENTED CLOTS BUT MOST PRESENTED FLESH CHUNKS (PER SPOUSE THESE HAD BEEN COMING OUT POST RADIATION TREATMENT TO THROAT). 2224, THIS RN SUCTIONING MOUTH AND OUTPUT INCREASED. TENACIOUS OUTPUT NOTED IN BACK OF THROAT AT THIS POINT. 2230 PT BEGING TO HAVE MORE LIQUID BLOODY OUTPUT WITH COUGHING. BEGINNING TO BECOME MORE FREQUENT. 2240 DR VAUGHN CALLED SITUATION RAPIDLY CHANGING. DR VAUGHN BEGAN TO SPEAK TO HOSPITALIST AND FACILITATE NEXT TREATMENT PATHWAY. 224 ICU PIPE AND BOILER COVERS SUPERVISOR TO ROOM. NURSING FORMING MACHINE ADJUSTER TO ROOM. ALONG WITH RESIDENT AND HOSPITALIST. NS BOLUS STARTED. PT PLACED ON 15L HIFLO O2. ORDERS FOR BLOODWORK AND TRANSFER TO ICU. DR VAUGHN DRIVING TO HOSPITAL. 2254 PT TO ICU. TRANSFERRED. PT ACCIDENTALLY PULLED IV. 18G'S PLACED IN BILAT ARMS. BEDSIDE REPORT BEING GIVEN. DR VAUGHN TO ROOM. ANESTHESIOLOGY AND RETAIL SPECIAL EVENT ASSOCIATE AND DR BOYER NOTIFIED AND EMERGENCY PATHWAYS FACILITATED BY NURSING FORMING MACHINE ADJUSTER. AT THIS TIME. THIS RN RELINQUISHED CARE OF PT TO [place] [facility] STILL OPERATOR.
--- NOTE | 2023-03-13 02:00 | NUR ---
PT TO AND HAS RETURNED FROM [facility] WHERE HE RECEIVED COIL TO LINGUAL ARTERY. THIS RN FOLLOWS PT THROUGH INTERVENTION. MAINTING VENT AND SEDATION. PT RETURNS TO ROOM ICU 4. TO ROOM. AND SHE IS TO ROOM IN FOR THE NIGHT. BEDBATH DONE TO CLEAN PT FROM BLOOD.
[2023-03-13 04:21] LABS: Source, Urine Foley catheter
[2023-03-13 04:25] LABS: BASOPHILS ABSOLUTE AUTO 0.03 K/mm3 (0.00-0.23); BASOPHILS PERCENT AUTO 0 % (0-2); EOSINOPHILS PERCENT AUTO 0 % (0-6); Hematocrit 25.8 % (37.0-53.0); Hemoglobin 8.7 g/dL (13.5-17.5); IMMATURE GRAN ABSOLUTE AUTO 0.08 K/mm3 (0.00-0.10); IMMATURE GRAN PERCENT AUTO 0 % (0-1); LYMPHOCYTES ABSOLUTE AUTO 0.31 K/mm3 (0.84-5.20); LYMPHOCYTES PERCENT AUTO 2 % (21-46); MONOCYTES PERCENT AUTO 6 % (4-13); Mean Corpuscular HGB 31.3 pg (26.0-34.0); Mean Corpuscular HGB Conc 33.7 g/dL (31.5-36.5); Mean Corpuscular Volume 93 fL (80-100); Mean Platelet Volume 9.8 fL (9.1-12.4); NEUTROPHILS ABSOLUTE AUTO 16.44 K/mm3 (1.96-9.15); NEUTROPHILS PERCENT AUTO 92 % (41-73); Platelet Count 393 K/mm3 (150-400); RDW Coefficient Variation 13.4 % (11.7-14.2); RDW Standard Deviation 46.2 fL (35.1-46.3); Red Blood Cell Count 2.78 M/mm3 (4.30-5.90); White Blood Cell Count 17.96 K/mm3 (4.00-11.30)
[2023-03-13 04:43] LABS: Appearance, Urine Clear (Clear); Bilirubin, Urine Neg (Neg); Blood, Urine Neg (Neg); Color, Urine Yellow (P-Yellow); Glucose Qualitative, Urine Neg (Neg); Ketones, Urine Neg (Neg); Leukocyte Esterase, Urine Neg (Neg); Nitrite, Urine Neg (Neg); Protein, Urine 2+ (Neg); Urobilinogen, Urine NORM (Normal); pH, Urine 6.5 (5.0-8.0)
[2023-03-13 04:59] LABS: Bacteria Few /hpf; Granular Casts 0-2 /lpf (0); Squamous Epithelial Cells Rare /hpf (Few)
--- NOTE | 2023-03-13 06:30 | NUR ---
GOOD ORAL HYGEINE HAS BEEN PERFORMED MULTIPLE TIME THIS MORNING. HAVE SUCTIONED BLOOD CLOTS AND AME BLOOD. PT HAS HAD SOMEWHAT SOFT BLOOD PRESSURES. PT RECEIVING FLUID CHALLENGE. WILL CONTINUE TO MONITOR PT, AND WILL REPORT OFF TO ONCOMING RN.
--- NOTE | 2023-03-13 07:45 | NUR ---
Assumed care of pt at 0700. Bedside report received from Bean BRUNO. Pt's spouse, Ching, at bedside. On ventilator with ACVC 16/400/7/30%. SpO2 90% or greater. ETCO2 34. Propofol 40 mcg/kg/min.
--- NOTE | 2023-03-13 17:00 | NUR ---
SUMMARY Neuro: Off sedation. No signs of delirium. Answers yes/no questions appropriately. Follows commands. Does not reach toward trach. Out of restraints. Cough and gag reflexes present. 3 mm pupils, PERRL. Musc: Moves all extremities with equal strength and range of motion. Able to assist with repositioning. Resp: #6 shiley, uncuffed trach in place. Trach collar for oxygenation. SpO2 98% with 30 % FiO2. Trach care done this shift by this RN. Scant bloody drainage to previous drain sponge. Card: SR-ST per monitor. HR 90-105. BP stable. No edema. Color, sensation, pulses, capillary refill equal BUE/BLE. GI: Continuous tube feeds started, pt tolerating well. TF as prescribed. No BM this shift : Good urine output from guerrero catheter. Skin: Unchanged from initial assessment. Psych: Family at bedside t/o shift.
--- NOTE | 2023-03-13 21:00 | NUR ---
ASSUMED CARE AT 1900 PT RESTING IN BED AND IS AT BEDSIDE. HE IS ORIENTED X4 AND TIRED; RESPONSIVE TO VERBAL STIMULI; HE IS ABLE TO ANSWER Y/N QUESTIONS WITH HEAD NODS AND WRITES DOWN HIS OTHER NEEDS. AFEBRILE. TRACH COLLAR IN PLACE WITH SETTINGS 7L AND FIO2 30%; NO SPUTUM FROM TRACH NOTED; TRACH IS A 6.0 SHILEY (CUFFED, AND UNFENESTRATED). HR 100-120'S. SBP 100-130'S. VHP INFUSING VIA G-TUBE AT 45ML/HR (GOAL) WITH 30ML FLUSH Q4HR. MROALES INPLACE AND DRAINING TO GRAVITY. RT GROIN SITE DRESSING C/D/I; NO SIGNS OF BLEEDING OR HEMATOMA. SEE SHIFT ASSESSMENT FOR FULL ASSESSMENT. PT PAIN MANAGEMENT BECOMING MORE CHALLENGING; PRN FENTANYL IS BEING GIVEN MORE FREQUENTLY AND ISN'T BRINING THE PAIN DOWN WELL. CALL MADE TO DR ESCAMILLA WHO PROVIDED NEW ORDERS FOR HOME REGIMEN OF PAIN MEDICATION.
[2023-03-14] VITALS (45 sets, daily range): BP systolic 101–148; BP diastolic 63–92
[2023-03-14 04:56] LABS: Hematocrit 19.8 % (37.0-53.0); Hemoglobin 6.6 g/dL (13.5-17.5); Mean Corpuscular HGB 30.4 pg (26.0-34.0); Mean Corpuscular HGB Conc 33.3 g/dL (31.5-36.5); Mean Corpuscular Volume 91 fL (80-100); Mean Platelet Volume 9.8 fL (9.1-12.4); Platelet Count 267 K/mm3 (150-400); RDW Coefficient Variation 13.7 % (11.7-14.2); RDW Standard Deviation 45.1 fL (35.1-46.3); Red Blood Cell Count 2.17 M/mm3 (4.30-5.90); White Blood Cell Count 8.03 K/mm3 (4.00-11.30)
[2023-03-14 05:17] LABS: Bun/Creatinine Ratio 29.2 (12.0-20.0); Calcium, Blood 8.2 mg/dL (8.5-10.1); Creatinine, Blood 0.68 mg/dL (0.60-1.20); Magnesium, Blood 1.8 mg/dL (1.6-2.4); Phosphorus, Blood 2.3 mg/dL (2.5-4.9)
--- NOTE | 2023-03-14 05:24 | NUR ---
UPDATE CALLED DR GAYLE REGARDING THIS AM HBG OF 6.6, NEW ORDERS PROVIDED TO TRANSFUSE 1 UNIT OF PRBC'S.
--- NOTE | 2023-03-14 06:57 | NUR ---
END OF SHIFT SUMMARY NO ACUTE EVENTS OVERNIGHT; HE WAS ABLE TO GET SOME SLEEP T/O THE NIGHT. HE CONT TO BE A/O X4 AND ANSWERS Y/N QUESTIONS APPROPRIATLY. PAIN IS BETTER MANAGED WITH LIQUID NORCO BUT CONT TO BE NEEDED AROUND THE CLOCK. ON TRACH COLLAR ALL NIGHT ON 7L AND FIO2 30%. AFEBRILE. HR 90-120'S. BP STABLE WITH SBP 110-130'S. VHP INFUSING AT GOAL. MORALES IN PLACE AND DRAINING TO GRAVITY. 1 UNIT OF PRBC'S INFUSING NOW AT 125ML/HR. REPORT GIVEN TO AM RN.
--- NOTE | 2023-03-14 07:15 | NUR ---
Assumed care of pt at 0700. Report received from Kera BRUNO. Pt A&O x 4. Answers questions, follows commands, verbalizes needs. Pleasant and cooperative with care. SpO2 90% or greater with 26% LPM on trach collar. SR per monitor. BP stable.
--- NOTE | 2023-03-14 18:39 | NUR ---
SUMMARY Neuro: A&O x 4. Answers questions, follows commands, verbalizes needs. Pleasant and cooperative with care. Musc/ADLs: Moves all extremities with equal strength and range of motion. Able to assist with ADLs. CHG bath completed today. Sat in recliner for approx 2 hours. Mobilizes with supervision only. Does not attempt to get out of bed without assistance. Resp: Initially on 26% FiO2. Currently on humidified room air with trach collar. Trach care complete by this RN and inner cannula changed by respiratory therapist. Suctioned once. Small amount of red clots. Cardiac: SR-ST, rate 95-105. BP stable. Color, sensation, pulses, capillary refill equal BUE and BLE. GI: Changed from continuous tube feeds to bolus feeds. Tolerating well. No BM this shift. : Islas catheter removed today. Voiding into catheter without difficulty. Skin: Unchanged from initial assessment. Psych: Family at bedside continuously. Ingition: Pt and family educated on ignition risk with oxygen use. Verbalized understanding. Hourly rounding complete.
--- NOTE | 2023-03-14 20:00 | NUR ---
ASSUMPTION OF CARE PT APPEARS COMFORTABLE, SITTING IN ROOM WITH A VISITOR AND . A&OX4. TRACH IN PLACE. 6.0 SHILEY CUFFED AND NON FENESTRATED WITH TRACH COLLAR. HUMIDIFIED MEDICAL AIR TO TRACH, O2 SATS IN MID 90S. LUNG SOUNDS CLEAR/DIMINISHED. NSR IN 80S. PT REPORTS STOMACH FEELS VERY FULL FROM PREVIOUS FEEDING AND CONTRIBUTES THIS TO NEW FIBER SUPPLEMENT. WOULD LIKE TO SKIP EVENING FEED. STOMACH FEELS NON DISTENDED UPON ASSESSMENT, AND NO PAIN PER PT. TYPICALLY MANAGES FEEDINGS AT HOME. USING URINAL APPROPRIATELY. PT IS COMPLAINING OF PAIN IN MOUTH D/T BLISTERS AND INFECTED TASTE BUD. MEDICATED WITH MAGIC MOUTH WASH.
[2023-03-15] VITALS (24 sets, daily range): BP systolic 125–159; BP diastolic 71–97
[2023-03-15 03:40] LABS: BASOPHILS ABSOLUTE AUTO 0.06 K/mm3 (0.00-0.23); BASOPHILS PERCENT AUTO 1 % (0-2); EOSINOPHILS ABSOLUTE AUTO 0.29 K/mm3 (0.00-0.68); EOSINOPHILS PERCENT AUTO 4 % (0-6); Hematocrit 24.4 % (37.0-53.0); Hemoglobin 8.2 g/dL (13.5-17.5); IMMATURE GRAN ABSOLUTE AUTO 0.02 K/mm3 (0.00-0.10); IMMATURE GRAN PERCENT AUTO 0 % (0-1); LYMPHOCYTES ABSOLUTE AUTO 0.62 K/mm3 (0.84-5.20); LYMPHOCYTES PERCENT AUTO 8 % (21-46); MONOCYTES PERCENT AUTO 13 % (4-13); Mean Corpuscular HGB 30.4 pg (26.0-34.0); Mean Corpuscular HGB Conc 33.6 g/dL (31.5-36.5); Mean Corpuscular Volume 90 fL (80-100); Mean Platelet Volume 9.8 fL (9.1-12.4); NEUTROPHILS PERCENT AUTO 74 % (41-73); Platelet Count 273 K/mm3 (150-400); RDW Coefficient Variation 14.2 % (11.7-14.2); RDW Standard Deviation 46.2 fL (35.1-46.3); White Blood Cell Count 7.79 K/mm3 (4.00-11.30)
[2023-03-15 03:57] LABS: Magnesium, Blood 1.9 mg/dL (1.6-2.4); Phosphorus, Blood 3.1 mg/dL (2.5-4.9)
--- NOTE | 2023-03-15 05:13 | NUR ---
SHIFT SUMMARY NO ACUTE CHANGES OVERNIGHT. VSS. 6.0 SHILEY, NON FENESTRATED, CUFFED TRACH IN PLACE WITH HUMIDIFIED AIR ATTACHED. DID SUCTION OVERNIGHT WITH SOME BLOODY OUTPUT. NEURO STATUS UNCHANGED. REPORTS PAIN IN MOUTH STILL, HAS BEEN OCCURING FOR LAST 5 MONTHS. FENTANYL AND HYDROCODONE GIVEN Q4 WITH GOOD EFFECT. REMAINS AT BEDSIDE. HEMOGLOBIN AT 8.2 THIS AM.
--- NOTE | 2023-03-15 09:23 | NUR ---
CARE OF PT ASSUMED AT 0700. PT SLEEPING, AWAKENS TO VOICE. DENIES NASUEA, SOB. C/O PAIN 7/0 TO MOUTH AND THROAT/NECK AREA. HUMIDIFIED ROOM AIR VIA TRACH COLLAR. PT TEMP 100.2; FAN AND COOL WASH CLOTH PLACED TO FOREHEAD. DR HOLMAN NOTIFIED. BLOOD CX AND SPUTUM ORDERED. PT MEDICATED W HYDROCODONE VIA FEEDING TUBE. PT DECLINED ORAL CARE D/T PAIN; MAGIC MOUTH WASH OFFERED, PT DECLINED FOR NOW. PT'S AT BEDSIDE. FIBER HELD PER PT REQUEST IT UPSET HIS STOMACH.
--- NOTE | 2023-03-15 13:21 | NUR ---
PT COUGHING WITH SATURATION DROPPING TO MID 80% ABOUT 20MIN AFTER BEING SUCTIONED BY RT. PT SX'D VIA TRACH W SEVERAL BLOOD CLOTS REMOVED AND SMALL AMT OF FRESH APPEARING BLOOD. DR HOLMAN HAS SIGNED OFF CASE BUT NOTIFIED SHE WAS IN UNIT. CHEST XRAY WAS ORDERED. RT AT BEDSIDE. DR JOHANA ROGER. LUNGS COARSE. RT PLACED PT ON 26% O2 VIA BLEED IN OF TRACH COLLAR.
--- NOTE | 2023-03-15 13:39 | NUR ---
DR MATHEW CALLED BACK SHORTLY AFTER ANSWERING SERVICE CALLED. DR MATHEW GIVEN FULL REPORT/UPDATE. ORDERS GIVEN TO MAKE SURE CUFF IS UP (WHICH IT WAS PER RT) AND CONTINUE TO MONITOR. DR MATHEW WILL PASS INFORMATION TO DR VAUGHN. WILL SEE IF DR BOYER IS AVAILABLE IF NEEDED. DR SUMNER AT BEDSIDE AND UPDATED WELL. FIO2 AT 26%.
--- NOTE | 2023-03-15 14:49 | NUR ---
DR MATHEW AT BEDSIDE. PT DECLINES ALLOWING DR MATHEW TO LOOK WITH SCOPE DOWN BACK OF THROAT AND DOWN TRACH AT THIS TIME. PT IS GOING TO TAKE SOME TIME TO CONSIDER OPTIONS
--- NOTE | 2023-03-15 15:03 | NUR ---
PT HAS AGREED TO LET DR MATHEW LOOK DOWN TRACH W SCOPE.
--- NOTE | 2023-03-15 15:24 | NUR ---
NO BLEEDING NOTED ABOVE OR BELOW TRACH PER DR MATHEW. PT TOLERATED PROCEDURE WELL. RAHEEL KIRK RT AT BEDSIDE TEACHING PT'S FAMILY TRACH CARE.
--- NOTE | 2023-03-15 17:17 | NUR ---
PT REQUIRED SEVERAL DOSES FENTANYL AND HYDROCODONE T/O SHIFT TO CONTROL C/O PAIN TO MOUTH/THROAT/NECK. SHORTLY AFTER RT SUCTIONED PT THIS AFTERNOON PT DESATURATED INTO MID 80'S, SEVERAL LARGE CLOTS AND SMALL AMT OF RED BLOOD SUCTIONED FROM TRACH. DR MATHEW (ENT) AT BEDSIDE AFTER TO PERFORM LIMITED LOOK W BRONCHSCOPE. NO EVIDENCE OF ACTIVE BLEEDING AT THIS TIME. DR BOYER NOTIFIED; UNAVAILABLE TODAY BUT AVAILABLE TOMORROW IF NEEDED. PT INTITIALLY ON HUMIDIFIED AIR, NOW ON HUMIDIFIED O2 AT 26%. SATS >95%. GENTLE TRACH SUCTIONING ONLY PER DR MATHEW. PT'S ADMINISTERED TUBE FEEDS PER PT REQUEST. INNER CANNULA CHANGED BY RT, TRACH CARE PERFORMED BY RT WHILE EDUCATING FAMILY ON TRACH CARE. PT AND FAMILY EDUCATED ON IGNITION RISK W O2 USE, UNDERSTANDING VERBALIZED, HOURLY ROUNDING FOR IGNITION SOURCES.
--- NOTE | 2023-03-15 20:00 | NUR ---
ASSUMPTION OF CARE PT SLEEPING AT BEGINNING OF SHIFT, DAUGHTER PRESENT. RT CURRENTLY ENTERING TO DO AIRWAY TREATMENT. UPON ASSESSMENT, CRISTOPHER IS NOT IN DESTRESSED AND IS SATTING WELL. CURRENTLY ON 26% FIO2. IS HAVING SOME PRODUCTIVE COUGHING AND RN AND RT DID VISUALIZE A NICKEL SIZED CLOT. SCANT AMOUNT OF BLEEDING ON SUCTION, BUT MAJORITY OF WHAT IS BEING SUCTIONED OUT APPEARS TO BE DRIED BLOOD. PER REPORT PT DID HAVE SOME BLEEDING TODAY DURING AN AGRESSIVE SUCTION IN THE AM. ALL OTHER VSS. PT WOULD LIKE TO TRY DIFFERENT PAIN MED COMBINATION IN ATTEMPTS TO LIMIT IV FENTANYL. SPOKE WITH DR. BOBO WHO ORDERED TRAMADOL BID, WHICH PT STATES HE HAD ON LAST ADMIT. GOOD URINE OUTPUT. WOULD LIKE TO GET GOOD REST TONIGHT.
[2023-03-16] VITALS (22 sets, daily range): BP systolic 109–153; BP diastolic 66–91
[2023-03-16 03:50] LABS: BASOPHILS ABSOLUTE AUTO 0.05 K/mm3 (0.00-0.23); BASOPHILS PERCENT AUTO 1 % (0-2); EOSINOPHILS ABSOLUTE AUTO 0.35 K/mm3 (0.00-0.68); EOSINOPHILS PERCENT AUTO 5 % (0-6); Hematocrit 25.5 % (37.0-53.0); Hemoglobin 8.6 g/dL (13.5-17.5); IMMATURE GRAN ABSOLUTE AUTO 0.01 K/mm3 (0.00-0.10); IMMATURE GRAN PERCENT AUTO 0 % (0-1); LYMPHOCYTES ABSOLUTE AUTO 0.51 K/mm3 (0.84-5.20); LYMPHOCYTES PERCENT AUTO 7 % (21-46); MONOCYTES ABSOLUTE AUTO 0.85 K/mm3 (0.16-1.47); MONOCYTES PERCENT AUTO 12 % (4-13); Mean Corpuscular HGB 30.6 pg (26.0-34.0); Mean Corpuscular HGB Conc 33.7 g/dL (31.5-36.5); Mean Corpuscular Volume 91 fL (80-100); Mean Platelet Volume 9.7 fL (9.1-12.4); NEUTROPHILS ABSOLUTE AUTO 5.37 K/mm3 (1.96-9.15); NEUTROPHILS PERCENT AUTO 75 % (41-73); Platelet Count 301 K/mm3 (150-400); RDW Coefficient Variation 13.7 % (11.7-14.2); RDW Standard Deviation 45.3 fL (35.1-46.3); Red Blood Cell Count 2.81 M/mm3 (4.30-5.90); White Blood Cell Count 7.14 K/mm3 (4.00-11.30)
--- NOTE | 2023-03-16 05:35 | NUR ---
SHIFT SUMMARY PT SEEMED TO GET GOOD REST THIS EVENING. NO IV FENTANYL GIVEN, ONLY HYDROCODONE AND TRAMADOL, ON OBSERVATION THIS COMBONATION SEEMED TO HAVE GOOD EFFECT. SUCTIONING NEEDED 3X THIS SHIFT, ALL TIMES WITH SCANT, DARK BLOODY OUTPUT. INNER CANNULA CLEANED. PT REMAINS ON HUMIDIFIED AIR AT 26% FIO2. GOOD URINE OUTPUT.
--- NOTE | 2023-03-16 10:43 | NUR ---
CARE OF PT ASSUMED AT 0700. PT SLEEPING, AWAKENS TO VOICE. C/O PAIN 4/10 TO MOUTH, STATES PAIN IS BETTER OVERALL AND FEELS THAT THE ULTRAM IS WORKING WELL. HYDROCODONE GIVEN WELL. TRACH W MINIMAL SECRETIONS/DRAINAGE. GOLDIE C/D/I. PT SATS 98% ON 26% FIO2 VIA TRACH COLLAR. DR SUMNER IN TO SEE PT THIS AM AND REACHED OUT TO DR VAUGHN; DR VAUGHN TO COME IN TODAY AND CHANGE OUT TRACH IN HOPES TO BE ABLE TO DISCHARGE PT HOME TOMORROW SO THAT HE CAN MAKE APPOINTMENT W CA SPECIALIST. DR ESCAMILLA AT BEDSIDE NOW, UPDATE GIVEN. PLAN TO GET PT OOB TO CHAIR TODAY.
--- NOTE | 2023-03-16 11:39 | NUR ---
PT'S EDUCATED ON TRACH CARE AND ASSISTED WITH TRACH CARE, SHE WILL BE CARING FOR TRACH AFTER DISCHARGE. PT GIVEN CHG BATH. SBA TO CHAIR, PT STRONG AND ABLE TO BEAR WEIGHT WELL.
--- NOTE | 2023-03-16 15:59 | NUR ---
DR VAUGHN CHANGED OUT TRACH FOR 6 SHILEY UNCUFFED FENESTRATED TRACH. PASSY CAMILLA VALVE PLACED, PT ABLE TO SPEAK DESPITE SMALL AIR LEAK. OKAY FOR PT TO TAKE SMALL SIPS OF WATER TOLERATED PER DR VAUGHN. DR VAUGHN WOULD LIKE PT TO HAVE SWALLOW EVAL PRIOR TO DISCHARGE TOMORROW. DR SUMNER UPDATED.
--- NOTE | 2023-03-16 17:33 | NUR ---
PAIN MORE WELL CONTROLLED THIS SHIFT W HYDROCODONE AND ULTRAM PRN. PAIN COMPLAINTS MOSTLY TO MOUTH 4-5/10. DR VAUGHN CHANGED OUT PT'S TRACH FOR #6 SHILEY FENESTRATED UNCUFFED TRACH, PASSY CAMILLA PLACED. PT TOLERATING WELL. NO ACTIVE BLEEDING TODAY, A FEW SMALL OLD CLOTS SUCTIONED FROM TRACH. TRACH EDUCATION PROVIDED AGAIN TODAY TO PT AND PT'S . PT'S ABLE TO DEMONSTRATE TRACH CARE. PT OOB TO CHAIR TODAY FOR SEVERAL HOURS; KYLE WELL. PT OKAY TO HAVE SMALL SIPS OF WATER PER DR VAUGHN; PT KYLE WELL. PT TO HAVE SWALLOW EVAL TOMORROW PRIOR TO DISCHARGE HOME. PT AND FAMILY EDUCATED ON IGNITION RISKS INVOLVING SMOKING AND 02, BOTH VERBALIZE UNDERSTANDING; WITH HOURLY ROUNDING ON INGNITION SOURCE/RISK
--- NOTE | 2023-03-16 20:11 | NUR ---
PATIENT RESTING QUIETLY, TRACH MIDLINE WITH DRESSING CD&I. TRACH COLLAR IN PLACE WITH HUMIDIFIED AIR FIO2 36% RESP EVEN AND UNLABORED. C/O PAIN TO RIGHT JAW AND NECK, MEDICATED WITH LIQUID HYDROCODONE VIA PEG TUBE WITH GOOD RELIEF. REFUSING ORAL CARE WITH [id number] DUE TO BURNING, PATIENT USING WATER AND ORAL SUCTION FOR ORAL CARE.
--- NOTE | 2023-03-16 20:35 | NUR ---
PATIENTS IN TO SEE PATIENT. VERY SUPPORTIVE WITH CARE.
--- NOTE | 2023-03-16 21:52 | NUR ---
PATIENT AND REMINDED OF IGNITION RISK INCREASING WITH OXYGEN USE. NO IGNITION DEVISES SEEN IN ROOM.
[2023-03-17] VITALS (15 sets, daily range): BP systolic 106–134; BP diastolic 66–94
--- NOTE | 2023-03-17 05:26 | NUR ---
SUMMARY PATIENT RESTING QUIETLY. VERBALIZED HAVING DIFFICULTY SLEEPING. TRACH REMAINS MIDLINE DRESSING CD&I, OCCASIONAL MOIST COUGH WITH JEAN-BAPTISTE TO WHITE SPUTUM. CONTINUES TO HAVE RIGHT JAW AND THROAT PAIN. STRONG SMELLING BREATH. REFUSING PERIDEX MOUTH CLEANING, PATIENT ABLE TO SWISH STERILE WATER AND SPIT AND MAGIC MOUTHWASH GIVEN X1 DURING THE NIGHT. TRACH SUCTIONING WITH SMALL AMT JEAN-BAPTISTE SPUTUM. PEG TUBE FOR BOLUS FEEDING AND MEDICATIONS. PATIENT ABLE TO REPOSITION SELF IN BED FOR COMFORT WITHOUT DIFFICULTY. BOTH PATIENT AND HIS VERBALIZED UNDERSTANDING ABOUT IGNITION RISK, NO IGNITION SOURCE SEEN IN ROOM T/O NIGHT.
--- NOTE | 2023-03-17 07:31 | NUR ---
CARE ASSUMPTION DURING BEDSIDE SHIFT REPORT W ROSALIND Lauren RN THE PT IS LYING IN BED ASLEEP BUT AWOKE TO THE SOUND OF OUR VOICES. PT HAS TRACH COLLAR IN PLACE W SPO2 >92%. PT REPORTING MODERATE PAIN RELIEF AFTER NOC RN TREATED HIM PER EMAR W ULTRAM JUST PRIOR TO CHANGE OF SHIFT. PT USING THE URINAL W/O ASSISTANCE AT THIS TIME. PT HAS FAMILY AT BEDSIDE SLEEPING IN RECLINER AT THIS TIME. MONITOR SHOWING SR IN THE 70'S W OCCASIONAL PVC. PT DENYING ANY FURTHER NEEDS AT THIS TIME.
--- NOTE | 2023-03-17 09:30 | NUR ---
UPDATE PT TAKEN OFF BLOW-BY HUMIDIFIED O2 AFTER THIS RN DISCUSSED THIS WITH RT. WILL SEE HOW THE PT TOLERATES THIS HE WILL BE GOING TO IMAGING FOR BARRIUM SWALLOW.
--- NOTE | 2023-03-17 10:28 | NUR ---
UPDATE PT TAKEN TO IMAGING FOR BARRIUM SWALLOW. PROCEDURE DONE AND RECOMMENDATIONS FOR STRICT NPO MADE BY ST. PT BACK IN RM W MOM AND SPOUSE AT BEDSIDE.
[2023-03-17] MEDS ORDERED: CIPR750 PO (11:28)
[2023-03-17] MEDS ORDERED: LIDOCAINE MT (11:33)
--- NOTE | 2023-03-17 12:56 | NUR ---
DISCHARGE PT WAS EVALUATED BY PROVIDER AND DC ORDERS WERE GIVEN. PT AND SPOUSE WERE EDUCATED ON TRACH CARE/MANAGEMENT. MEDICATIONS WERE FAXED TO PHARMACY OF CHOICE AN THIS RN CONTACTED [facility] TO CONFIRM THEY RECIEVED THIS FAX. PT'S VS WERE STABLE ON RM AIR. TRACH CARE WAS PERFORMED AND IV'S DC'D. PT TAKEN OUT IN A W/C TO PRIVATE VEHICLE BEING DRIVEN BY HIS .
== END 2023-03-17 12:30 | disposition home or self-care (01) | DRG 11 ==
LOC: ER 17:00 → PCU 17:01 → ICUE 17:01 → PCU 21:23 → ICUE 22:54
PROVIDERS: Family Medicine; Internal Medicine Critical Care Medicine; Nurse Practitioner Acute Care; Student in an Organized Health Care Education/Training Program; ADMIT Internal Medicine
PROC: 30233N1 Transfusion of Nonautologous Red Blood Cells into Peripheral Vein, Percutaneous Approach (ICD-10-PCS; 2023-03-12)
PROC: 0DH63UZ Insertion of Feeding Device into Stomach, Percutaneous Approach (ICD-10-PCS; 2023-03-12)
PROC: 5A1935Z Respiratory Ventilation, Less than 24 Consecutive Hours (ICD-10-PCS; principal; 2023-03-13)
PROC: 0B110F4 Bypass Trachea to Cutaneous with Tracheostomy Device, Open Approach (ICD-10-PCS; 2023-03-13)
PROC: 03V Upper Arteries, Restriction (ICD-10-PCS; 2023-03-13)
PROC: 0T9B70Z Drainage of Bladder with Drainage Device, Via Natural or Artificial Opening (ICD-10-PCS; 2023-03-13)
DX: C10.2 Malignant neoplasm of lateral wall of oropharynx (principal); J96.00 Acute respiratory failure, unspecified whether with hypoxia or hypercapnia; D62 Acute posthemorrhagic anemia; E87.1 Hypo-osmolality and hyponatremia; R04.2 Hemoptysis; I50.30 Unspecified diastolic (congestive) heart failure; E46 Unspecified protein-calorie malnutrition; R04.1 Hemorrhage from throat; R91.1 Solitary pulmonary nodule; I11.0 Hypertensive heart disease with heart failure; K21.9 Gastro-esophageal reflux disease without esophagitis; M10.9 Gout, unspecified; Z79.891 Long term (current) use of opiate analgesic; Z79.899 Other long term (current) drug therapy; Z79.1 Long term (current) use of non-steroidal anti-inflammatories (NSAID); Z87.891 Personal history of nicotine dependence; Z98.890 Other specified postprocedural states; Z93.1 Gastrostomy status; Z93.0 Tracheostomy status; Z68.22 Body mass index [BMI] 22.0-22.9, adult
CPT/HCPCS: 31500; 31720; 36415; 36430; 51702; 70491; 71045; 71046; 74230; 76937; 80048; 80053; 81001; 82947; 83735; 84100; 85025; 85027; 85610; 85730; 86850; 86900; 86901; 86923; 87040; 87070; 87077; 87186; 87205; 92610; 92611; 93005; 93010; 94002; 94003; 94640; 94664; 94762; 96365; 96374-59; 96375; 96376; 99285-25; A9270; C1760; C1769; C1887; C1894; C9113; G0378; J0696; J1644; J2001; J2250; J2270; J2405; J2704; J2765; J3010; J3475; J7030; J7050; P9016; Q9967

== ENCOUNTER 2023-03-27 00:57 | Day surgery (SDC) | payer OTHER ==
[~2023-03-27 00:57] MED LIST changes: +CIPR750 PO; +LIDOCAINE MT
== END 2023-03-27 22:59 | disposition home or self-care (01) ==
LOC: WOUND 00:57
DX: L59.8 Other specified disorders of the skin and subcutaneous tissue related to radiation (principal); C10.8 Malignant neoplasm of overlapping sites of oropharynx; J39.2 Other diseases of pharynx; G47.30 Sleep apnea, unspecified; I10 Essential (primary) hypertension; K12.33 Oral mucositis (ulcerative) due to radiation; Z87.891 Personal history of nicotine dependence
CPT/HCPCS: G0463

== ENCOUNTER 2023-04-14 01:28 | Day surgery (SDC) | payer OTHER | END 2023-04-14 22:56 | disposition home or self-care (01) | LOC: HBO 01:28 | DX: C10.8 Malignant neoplasm of overlapping sites of oropharynx (principal); J39.2 Other diseases of pharynx; K12.33 Oral mucositis (ulcerative) due to radiation | CPT/HCPCS: G0277 ==

== ENCOUNTER 2023-04-15 00:57 | Day surgery (SDC) | payer OTHER | END 2023-04-15 23:01 | disposition home or self-care (01) | LOC: HBO 00:57 | DX: K12.33 Oral mucositis (ulcerative) due to radiation (principal); C10.8 Malignant neoplasm of overlapping sites of oropharynx; J39.2 Other diseases of pharynx | CPT/HCPCS: G0277 ==

== ENCOUNTER 2023-04-16 10:53 | Day surgery (SDC) | payer OTHER | END 2023-04-16 22:50 | disposition home or self-care (01) | LOC: HBO 10:53 | DX: L59.8 Other specified disorders of the skin and subcutaneous tissue related to radiation (principal); C10.8 Malignant neoplasm of overlapping sites of oropharynx; J39.2 Other diseases of pharynx; Y84.2 Radiological procedure and radiotherapy as the cause of abnormal reaction of the patient, or of later complication, without mention of misadventure at the time of the procedure | CPT/HCPCS: G0277 ==

== ENCOUNTER 2023-04-17 03:44 | Day surgery (SDC) | payer OTHER | END 2023-04-17 22:44 | disposition home or self-care (01) | LOC: HBO 03:44 | DX: L59.8 Other specified disorders of the skin and subcutaneous tissue related to radiation (principal); C10.8 Malignant neoplasm of overlapping sites of oropharynx; J39.2 Other diseases of pharynx | CPT/HCPCS: G0277 ==

== ENCOUNTER 2023-04-18 00:59 | Day surgery (SDC) | payer OTHER | END 2023-04-18 22:58 | disposition home or self-care (01) | LOC: HBO 00:59 | DX: L59.8 Other specified disorders of the skin and subcutaneous tissue related to radiation (principal); C10.8 Malignant neoplasm of overlapping sites of oropharynx; J39.2 Other diseases of pharynx | CPT/HCPCS: G0277 ==

== ENCOUNTER 2023-04-23 02:13 | Day surgery (SDC) | payer OTHER | END 2023-04-23 23:02 | disposition home or self-care (01) | LOC: HBO 02:13 | DX: L59.8 Other specified disorders of the skin and subcutaneous tissue related to radiation (principal); C10.8 Malignant neoplasm of overlapping sites of oropharynx; J39.2 Other diseases of pharynx; A49.01 Methicillin susceptible Staphylococcus aureus infection, unspecified site | CPT/HCPCS: G0277 ==

== ENCOUNTER 2023-04-24 01:29 | Day surgery (SDC) | payer OTHER | END 2023-04-24 22:41 | disposition home or self-care (01) | LOC: HBO 01:29 | DX: L59.8 Other specified disorders of the skin and subcutaneous tissue related to radiation (principal); C10.8 Malignant neoplasm of overlapping sites of oropharynx; J39.2 Other diseases of pharynx; A49.01 Methicillin susceptible Staphylococcus aureus infection, unspecified site | CPT/HCPCS: 36415; G0277 ==

== ENCOUNTER 2023-04-25 00:48 | Day surgery (SDC) | payer OTHER | END 2023-04-25 22:53 | disposition home or self-care (01) | LOC: HBO 00:48 | DX: L59.8 Other specified disorders of the skin and subcutaneous tissue related to radiation (principal); C10.8 Malignant neoplasm of overlapping sites of oropharynx; J39.2 Other diseases of pharynx; A49.01 Methicillin susceptible Staphylococcus aureus infection, unspecified site | CPT/HCPCS: G0277 ==

== ENCOUNTER 2023-04-28 01:14 | Day surgery (SDC) | payer OTHER | END 2023-04-28 22:50 | disposition home or self-care (01) | LOC: HBO 01:14 | DX: L59.8 Other specified disorders of the skin and subcutaneous tissue related to radiation (principal); C10.8 Malignant neoplasm of overlapping sites of oropharynx; J39.2 Other diseases of pharynx; A49.01 Methicillin susceptible Staphylococcus aureus infection, unspecified site | CPT/HCPCS: G0277 ==

== ENCOUNTER 2023-05-01 01:46 | Day surgery (SDC) | payer OTHER | END 2023-05-01 22:54 | disposition home or self-care (01) | LOC: HBO 01:46 | DX: L59.8 Other specified disorders of the skin and subcutaneous tissue related to radiation (principal); C10.8 Malignant neoplasm of overlapping sites of oropharynx; J39.2 Other diseases of pharynx; A49.01 Methicillin susceptible Staphylococcus aureus infection, unspecified site | CPT/HCPCS: G0277 ==

== ENCOUNTER 2023-05-02 00:51 | Day surgery (SDC) | payer OTHER | END 2023-05-02 22:48 | disposition home or self-care (01) | LOC: HBO 00:51 | DX: L59.8 Other specified disorders of the skin and subcutaneous tissue related to radiation (principal); C10.8 Malignant neoplasm of overlapping sites of oropharynx; J39.2 Other diseases of pharynx; A49.01 Methicillin susceptible Staphylococcus aureus infection, unspecified site | CPT/HCPCS: G0277 ==

== ENCOUNTER 2023-05-05 01:54 | Day surgery (SDC) | payer OTHER | END 2023-05-05 23:03 | disposition home or self-care (01) | LOC: HBO 01:54 | DX: L59.8 Other specified disorders of the skin and subcutaneous tissue related to radiation (principal); C10.8 Malignant neoplasm of overlapping sites of oropharynx; J39.2 Other diseases of pharynx; A49.01 Methicillin susceptible Staphylococcus aureus infection, unspecified site | CPT/HCPCS: G0277 ==

== ENCOUNTER 2023-05-06 02:28 | Day surgery (SDC) | payer OTHER | END 2023-05-06 23:00 | disposition home or self-care (01) | LOC: HBO 02:28 | DX: L59.8 Other specified disorders of the skin and subcutaneous tissue related to radiation (principal); J39.2 Other diseases of pharynx; A49.01 Methicillin susceptible Staphylococcus aureus infection, unspecified site | CPT/HCPCS: G0277 ==

== ENCOUNTER 2023-05-09 03:15 | Day surgery (SDC) | payer OTHER | END 2023-05-09 22:41 | disposition home or self-care (01) | LOC: HBO 03:15 | DX: L59.8 Other specified disorders of the skin and subcutaneous tissue related to radiation (principal); C10.8 Malignant neoplasm of overlapping sites of oropharynx; J39.2 Other diseases of pharynx; A49.01 Methicillin susceptible Staphylococcus aureus infection, unspecified site | CPT/HCPCS: G0277 ==

== ENCOUNTER 2023-05-12 02:06 | Day surgery (SDC) | payer OTHER | END 2023-05-12 23:09 | disposition home or self-care (01) | LOC: HBO 02:06 | DX: L59.8 Other specified disorders of the skin and subcutaneous tissue related to radiation (principal); C10.8 Malignant neoplasm of overlapping sites of oropharynx; J39.2 Other diseases of pharynx; A49.01 Methicillin susceptible Staphylococcus aureus infection, unspecified site | CPT/HCPCS: G0277 ==

== ENCOUNTER 2023-05-21 02:28 | Day surgery (SDC) | payer OTHER | END 2023-05-21 23:54 | disposition home or self-care (01) | LOC: HBO 02:28 | DX: L59.8 Other specified disorders of the skin and subcutaneous tissue related to radiation (principal); C10.8 Malignant neoplasm of overlapping sites of oropharynx; J39.2 Other diseases of pharynx; A49.01 Methicillin susceptible Staphylococcus aureus infection, unspecified site | CPT/HCPCS: G0277 ==

== ENCOUNTER 2023-05-22 08:00 | Day surgery (SDC) | payer OTHER | END 2023-05-22 23:59 | disposition home or self-care (01) | LOC: HBO 08:00 | DX: L59.8 Other specified disorders of the skin and subcutaneous tissue related to radiation (principal); C10.8 Malignant neoplasm of overlapping sites of oropharynx; J39.2 Other diseases of pharynx; A49.01 Methicillin susceptible Staphylococcus aureus infection, unspecified site | CPT/HCPCS: G0277 ==

== ENCOUNTER 2023-05-23 00:33 | Day surgery (SDC) | payer OTHER | END 2023-05-23 22:49 | disposition home or self-care (01) | LOC: HBO 00:33 | DX: L59.8 Other specified disorders of the skin and subcutaneous tissue related to radiation (principal); C10.8 Malignant neoplasm of overlapping sites of oropharynx; J39.2 Other diseases of pharynx; A49.01 Methicillin susceptible Staphylococcus aureus infection, unspecified site | CPT/HCPCS: G0277 ==

== ENCOUNTER 2023-05-27 02:25 | Day surgery (SDC) | payer OTHER | END 2023-05-27 22:47 | disposition home or self-care (01) | LOC: HBO 02:25 | DX: L59.8 Other specified disorders of the skin and subcutaneous tissue related to radiation (principal); C10.8 Malignant neoplasm of overlapping sites of oropharynx; J39.2 Other diseases of pharynx; A49.01 Methicillin susceptible Staphylococcus aureus infection, unspecified site | CPT/HCPCS: G0277 ==

== ENCOUNTER 2023-05-28 02:36 | Day surgery (SDC) | payer OTHER | END 2023-05-29 23:38 | disposition home or self-care (01) | LOC: HBO 02:36 | DX: L59.8 Other specified disorders of the skin and subcutaneous tissue related to radiation (principal); C10.8 Malignant neoplasm of overlapping sites of oropharynx; J39.2 Other diseases of pharynx; A49.01 Methicillin susceptible Staphylococcus aureus infection, unspecified site | CPT/HCPCS: G0277 ==

== ENCOUNTER 2023-05-29 01:56 | Day surgery (SDC) | payer OTHER | END 2023-05-29 23:38 | disposition home or self-care (01) | LOC: HBO 01:56 | DX: L59.8 Other specified disorders of the skin and subcutaneous tissue related to radiation (principal); C10.8 Malignant neoplasm of overlapping sites of oropharynx; J39.2 Other diseases of pharynx; A49.01 Methicillin susceptible Staphylococcus aureus infection, unspecified site | CPT/HCPCS: G0277 ==

== ENCOUNTER 2023-05-30 02:40 | Day surgery (SDC) | payer OTHER | END 2023-05-30 22:46 | disposition home or self-care (01) | LOC: HBO 02:40 | DX: L59.8 Other specified disorders of the skin and subcutaneous tissue related to radiation (principal); C10.8 Malignant neoplasm of overlapping sites of oropharynx; J39.2 Other diseases of pharynx; A49.01 Methicillin susceptible Staphylococcus aureus infection, unspecified site | CPT/HCPCS: G0277 ==

== ENCOUNTER 2023-06-02 02:00 | Day surgery (SDC) | payer OTHER | END 2023-06-02 22:54 | disposition home or self-care (01) | LOC: HBO 02:00 | DX: L59.8 Other specified disorders of the skin and subcutaneous tissue related to radiation (principal); C10.8 Malignant neoplasm of overlapping sites of oropharynx; J39.2 Other diseases of pharynx; A49.01 Methicillin susceptible Staphylococcus aureus infection, unspecified site | CPT/HCPCS: G0277 ==

== ENCOUNTER 2023-06-03 01:45 | Day surgery (SDC) | payer OTHER | END 2023-06-03 22:40 | disposition home or self-care (01) | LOC: HBO 01:45 | DX: L59.8 Other specified disorders of the skin and subcutaneous tissue related to radiation (principal); C10.8 Malignant neoplasm of overlapping sites of oropharynx; J39.2 Other diseases of pharynx; A49.01 Methicillin susceptible Staphylococcus aureus infection, unspecified site | CPT/HCPCS: G0277 ==

== ENCOUNTER 2023-06-04 05:16 | Day surgery (SDC) | payer OTHER | END 2023-06-04 23:10 | disposition home or self-care (01) | LOC: HBO 05:16 | DX: L59.8 Other specified disorders of the skin and subcutaneous tissue related to radiation (principal); C10.8 Malignant neoplasm of overlapping sites of oropharynx; J39.2 Other diseases of pharynx; A49.01 Methicillin susceptible Staphylococcus aureus infection, unspecified site | CPT/HCPCS: G0277 ==

== ENCOUNTER 2023-06-05 03:29 | Day surgery (SDC) | payer OTHER | END 2023-06-05 22:44 | disposition home or self-care (01) | LOC: HBO 03:29 | DX: L59.8 Other specified disorders of the skin and subcutaneous tissue related to radiation (principal); C10.8 Malignant neoplasm of overlapping sites of oropharynx; J39.2 Other diseases of pharynx; A49.01 Methicillin susceptible Staphylococcus aureus infection, unspecified site | CPT/HCPCS: G0277 ==

== ENCOUNTER 2023-06-06 05:09 | Day surgery (SDC) | payer OTHER | END 2023-06-06 22:43 | disposition home or self-care (01) | LOC: HBO 05:09 | DX: L59.8 Other specified disorders of the skin and subcutaneous tissue related to radiation (principal); C10.8 Malignant neoplasm of overlapping sites of oropharynx; J39.2 Other diseases of pharynx; A49.01 Methicillin susceptible Staphylococcus aureus infection, unspecified site | CPT/HCPCS: G0463 ==

== ENCOUNTER 2023-06-09 02:55 | Day surgery (SDC) | payer OTHER | END 2023-06-10 23:04 | disposition home or self-care (01) | LOC: HBO 02:55 | DX: L59.8 Other specified disorders of the skin and subcutaneous tissue related to radiation (principal); C10.8 Malignant neoplasm of overlapping sites of oropharynx; J39.2 Other diseases of pharynx; A49.01 Methicillin susceptible Staphylococcus aureus infection, unspecified site | CPT/HCPCS: G0277; G0463 ==

== ENCOUNTER 2023-06-10 00:25 | Day surgery (SDC) | payer OTHER | END 2023-06-10 23:04 | disposition home or self-care (01) | LOC: HBO 00:25 | DX: L59.8 Other specified disorders of the skin and subcutaneous tissue related to radiation (principal); C10.8 Malignant neoplasm of overlapping sites of oropharynx; J39.2 Other diseases of pharynx; A49.01 Methicillin susceptible Staphylococcus aureus infection, unspecified site | CPT/HCPCS: G0277 ==

== ENCOUNTER 2023-06-11 02:33 | Day surgery (SDC) | payer OTHER | END 2023-06-11 22:53 | disposition home or self-care (01) | LOC: HBO 02:33 | DX: L59.8 Other specified disorders of the skin and subcutaneous tissue related to radiation (principal); C10.8 Malignant neoplasm of overlapping sites of oropharynx; A49.01 Methicillin susceptible Staphylococcus aureus infection, unspecified site | CPT/HCPCS: G0277 ==

== ENCOUNTER 2023-06-12 03:19 | Day surgery (SDC) | payer OTHER | END 2023-06-12 22:37 | disposition home or self-care (01) | LOC: HBO 03:19 | PROC: 6A151ZZ Decompression, Circulatory, Multiple (ICD-10-PCS; principal; 2023-06-12) | DX: L59.8 Other specified disorders of the skin and subcutaneous tissue related to radiation (principal); C10.8 Malignant neoplasm of overlapping sites of oropharynx; J39.2 Other diseases of pharynx; A49.01 Methicillin susceptible Staphylococcus aureus infection, unspecified site | CPT/HCPCS: G0277 ==

== ENCOUNTER 2023-06-13 03:09 | Day surgery (SDC) | payer OTHER | END 2023-06-13 23:44 | disposition home or self-care (01) | LOC: HBO 03:09 | DX: L59.8 Other specified disorders of the skin and subcutaneous tissue related to radiation (principal); C10.8 Malignant neoplasm of overlapping sites of oropharynx; J39.2 Other diseases of pharynx; A49.01 Methicillin susceptible Staphylococcus aureus infection, unspecified site | CPT/HCPCS: G0277 ==

== ENCOUNTER 2023-06-16 02:17 | Day surgery (SDC) | payer OTHER ==
[2023-06-16] MEDS ORDERED: MORP10S PT (16:13)
[2023-06-16] MEDS ORDERED: MORP15ER PT (16:13)
[2023-06-16] MEDS ORDERED: ACET500 PO (16:14)
== END 2023-06-16 22:53 | disposition home or self-care (01) ==
LOC: HBO 02:17
DX: L59.8 Other specified disorders of the skin and subcutaneous tissue related to radiation (principal); C10.8 Malignant neoplasm of overlapping sites of oropharynx; J39.2 Other diseases of pharynx; A49.01 Methicillin susceptible Staphylococcus aureus infection, unspecified site
CPT/HCPCS: 82947; G0277

== ENCOUNTER 2023-09-03 00:36 | Emergency (ER) | payer OTHER ==
[~2023-09-03] VITALS: Ht 172.7 cm; Wt 79.4 kg
[~2023-09-03 00:36] MED LIST changes: +ACET500 PO; +MORP10S PT; +MORP15ER PT
[2023-09-03 01:10] VITALS: BP 112/78
== END 2023-09-03 01:23 | disposition left against medical advice (07) ==
LOC: ER 00:36
DX: R50.9 Fever, unspecified (principal); R10.84 Generalized abdominal pain; R00.0 Tachycardia, unspecified; Z87.891 Personal history of nicotine dependence; C10.9 Malignant neoplasm of oropharynx, unspecified; I10 Essential (primary) hypertension; K21.9 Gastro-esophageal reflux disease without esophagitis; Z79.899 Other long term (current) drug therapy
CPT/HCPCS: 99281

== ENCOUNTER → 2023-09-05 | Outpatient (CLI) | payer OTHER ==
[~2023-09-05] MED LIST changes: +DEXA4 PO; +Diflucan150 MG PO; +SILDENAFIL CITR50 MG PO; +TAMSULOSIN HCL0.4 M1 PO
[2023-09-05 14:36] LABS: BASOPHILS PERCENT AUTO 0 % (0-2); Hematocrit 40.6 % (37.0-53.0); Hemoglobin 14.2 g/dL (13.5-17.5); LYMPHOCYTES ABSOLUTE AUTO 0.18 K/mm3 (0.84-5.20); LYMPHOCYTES PERCENT AUTO 16 % (21-46); MONOCYTES ABSOLUTE AUTO 0.71 K/mm3 (0.16-1.47); MONOCYTES PERCENT AUTO 63 % (4-13); Mean Corpuscular HGB 31.4 pg (26.0-34.0); Mean Corpuscular Volume 90 fL (80-100); Mean Platelet Volume 10.8 fL (9.1-12.4); Platelet Count 190 K/mm3 (150-400); RDW Standard Deviation 42.6 fL (35.1-46.3); Red Blood Cell Count 4.52 M/mm3 (4.30-5.90); White Blood Cell Count 1.13 K/mm3 (4.00-11.30)
[2023-09-05 14:39] LABS: EOSINOPHILS PERCENT AUTO 0 % (0-6); IMMATURE GRAN ABSOLUTE AUTO 0.02 K/mm3 (0.00-0.10); IMMATURE GRAN PERCENT AUTO 2 % (0-1); NEUTROPHILS ABSOLUTE AUTO 0.22 K/mm3 (1.96-9.15); NEUTROPHILS PERCENT AUTO 20 % (41-73)
[2023-09-05 15:17] LABS: Albumin, Blood 2.3 g/dL (3.4-5.0); Albumin/Globulin Ratio 0.5 (0.8-1.8); Bilirubin, Total 0.7 mg/dL (0.1-1.0); Calcium, Blood 8.9 mg/dL (8.5-10.1); Creatinine, Blood 1.26 mg/dL (0.60-1.20); Globulin, Blood 4.8 g/dL (2.2-4.0); Potassium, Blood 4.6 mmol/L (3.5-5.5); Total Protein, Blood 7.1 g/dL (6.4-8.2)
== END | disposition home or self-care (01) ==
LOC: LAB SHORT 14:30 → LAB 14:30
PROVIDERS: Chiropractor
DX: R10.9 Unspecified abdominal pain (principal)
CPT/HCPCS: 80053; 83690; 84484; 85025

== ENCOUNTER 2023-09-06 11:36 | Inpatient (IN) | payer OTHER ==
[~2023-09-06] VITALS: Ht 170.2 cm; Wt 69.0 kg
[~2023-09-06 11:36] MED LIST changes: -DEXA4 PO; -Diflucan150 MG PO; -SILDENAFIL CITR50 MG PO; -TAMSULOSIN HCL0.4 M1 PO
[2023-09-06] MEDS ORDERED: TAMSULOSIN HCL0.4 M1 PO (11:52)
[2023-09-06] MEDS ORDERED: SILDENAFIL CITR50 MG PO (11:52)
[2023-09-06] MEDS ORDERED: DEXA4 PO (11:53)
[2023-09-06] MEDS ORDERED: Diflucan150 MG PO (11:53)
[2023-09-06 12:56] LABS: Hematocrit 36.6 % (37.0-53.0); Hemoglobin 12.8 g/dL (13.5-17.5); Mean Corpuscular HGB 31.1 pg (26.0-34.0); Mean Corpuscular Volume 89 fL (80-100); Mean Platelet Volume 10.9 fL (9.1-12.4); Platelet Count 173 K/mm3 (150-400); RDW Coefficient Variation 13.1 % (11.7-14.2); RDW Standard Deviation 42.5 fL (35.1-46.3); Red Blood Cell Count 4.12 M/mm3 (4.30-5.90); White Blood Cell Count 2.71 K/mm3 (4.00-11.30)
[2023-09-06 13:21] LABS: Albumin, Blood 1.9 g/dL (3.4-5.0); Albumin/Globulin Ratio 0.5 (0.8-1.8); Bilirubin, Direct 0.2 mg/dL (0.0-0.3); Bilirubin, Indirect 0.3 mg/dL (0.1-0.7); Bilirubin, Total 0.5 mg/dL (0.1-1.0); Bun/Creatinine Ratio 31.2 (12.0-20.0); Calcium, Blood 7.8 mg/dL (8.5-10.1); Creatinine, Blood 0.8 mg/dL (0.60-1.20); Globulin, Blood 4.2 g/dL (2.2-4.0); Magnesium, Blood 2.4 mg/dL (1.6-2.4); Potassium, Blood 3.7 mmol/L (3.5-5.5); Total Protein, Blood 6.1 g/dL (6.4-8.2)
[2023-09-06 13:26] LABS: BAND PERCENT MAN 12 % (0-8); BASOPHILS PERCENT MAN 0 % (0-2); EOSINOPHILS PERCENT MAN 0 % (0-6); LYMPHOCYTES % ATYPICAL MANUAL 1 % (0-0); LYMPHOCYTES ABSOLUTE MAN 0.46 K/mm3 (0.84-5.20); LYMPHOCYTES PERCENT MAN 16 % (21-46); MONOCYTES ABSOLUTE MAN 0.56 K/mm3 (0.16-1.47); MONOCYTES PERCENT MAN 21 % (4-13); NEUTROPHILS ABSOLUTE MAN 1.68 K/mm3 (1.96-9.15); SEG NEUTROPHILS PERCENT MAN 50 % (41-73); TOTAL CELLS COUNTED 100
[2023-09-06 14:02] LABS: Influenza A, PCR NEGATIVE (NEGATIVE); Influenza B, PCR NEGATIVE (NEGATIVE); Resp Syncytial Virus, PCR NEGATIVE (NEGATIVE); SARS-Cov-2 (COVID-19) PCR, MMC NEGATIVE (NEGATIVE)
[2023-09-06 17:57] VITALS: BP 114/68
[2023-09-06 19:46] VITALS: BP 115/72
[2023-09-06 23:53] VITALS: BP 117/69
[2023-09-07 03:52] LABS: Hematocrit 31.6 % (37.0-53.0); Mean Corpuscular HGB 31.3 pg (26.0-34.0); Mean Corpuscular HGB Conc 34.8 g/dL (31.5-36.5); Mean Corpuscular Volume 90 fL (80-100); Mean Platelet Volume 10.2 fL (9.1-12.4); Platelet Count 157 K/mm3 (150-400); RDW Coefficient Variation 13.2 % (11.7-14.2); RDW Standard Deviation 43.7 fL (35.1-46.3); Red Blood Cell Count 3.51 M/mm3 (4.30-5.90); White Blood Cell Count 3.21 K/mm3 (4.00-11.30)
[2023-09-07 03:56] VITALS: BP 119/73
[2023-09-07 04:11] LABS: Albumin, Blood 1.6 g/dL (3.4-5.0); Albumin/Globulin Ratio 0.5 (0.8-1.8); Bilirubin, Total 0.4 mg/dL (0.1-1.0); Bun/Creatinine Ratio 27.4 (12.0-20.0); Calcium, Blood 7.4 mg/dL (8.5-10.1); Creatinine, Blood 0.69 mg/dL (0.60-1.20); Globulin, Blood 3.5 g/dL (2.2-4.0); Potassium, Blood 3.3 mmol/L (3.5-5.5); Total Protein, Blood 5.1 g/dL (6.4-8.2)
[2023-09-07 04:12] LABS: BAND PERCENT MAN 10 % (0-8); BASOPHILS ABSOLUTE MAN 0.03 K/mm3 (0.00-0.23); BASOPHILS PERCENT MAN 1 % (0-2); EOSINOPHILS PERCENT MAN 0 % (0-6); LYMPHOCYTES % ATYPICAL MANUAL 2 % (0-0); LYMPHOCYTES ABSOLUTE MAN 0.25 K/mm3 (0.84-5.20); LYMPHOCYTES PERCENT MAN 6 % (21-46); MONOCYTES ABSOLUTE MAN 0.51 K/mm3 (0.16-1.47); MONOCYTES PERCENT MAN 16 % (4-13); SEG NEUTROPHILS PERCENT MAN 65 % (41-73); TOTAL CELLS COUNTED 100
--- NOTE | 2023-09-07 06:01 | NUR ---
END OF SHIFT NOTE: NO ACUTE EVENTS OVERNIGHT. ALERT, ORIENTED X4. ABLE TO COMMUNICATE NEEDS W/ STAFF. HR 90-100'S, SINUS/SINUS TACH ON TELE. SBP 110'S, DENIES CHEST PAIN/PRESSURE. SPO2 >95% ON RA. AFEBRILE, DENIES CHILLS/BODY ACHES. NO N/V EPISODES. LR INFUSING AT 125 ML/HR PER EMAR. IV ABX ORDERED. SPOUSE AT BEDSIDE. NO OTHER NEEDS AT THIS TIME. CALL LIGHT IN REACH, BED IN LOWEST POSITION. WILL REPORT TO ONCOMING RN.
[2023-09-07 08:34] VITALS: BP 122/86
[2023-09-07 11:29] VITALS: BP 114/76
--- NOTE | 2023-09-07 12:13 | NUR ---
REDNESS AROUND FEEDING TUBE HAS IMPROVED SINCE LAST ASSESSED BY THIS RN LAST NOC UPON ADMISSION, DR RG WAS AT BEDSIDE AND IS ALSO AWARE OF THIS. VSS. NADN. DENIES CP AND SOB. HE REMAINS ON ROOMAIR. WHEN I ASSUMED PT CARE THIS AM FROM PROMISE BRUNO HIS LACTATED RINGERS WAS NOTED TO BE TURNED OFF PT STS "YEAH I TURNED IT OFF", THE INFUSIONS WERE AGAIN RESTARTED AND HARD LOCK OUT WAS TURNED ON AT THE PUMP TO PREVENT PATIENT FROM AGAIN TAMPERING WITH PUMP. PT RESPORTS FEELING "MUCH BETTER", DR RG AND HIM SPOKE ABOUT D/C OR STAYING ANOTHER NIGHT PT'S WISHES ARE TO GO HOME, IS AT WORK BUT WILL BE IN THIS AFTERNOON, WILL DISCUSS POSSIBLE DISCHARGE WITH KARYN WHEN SHE COMES IN
[2023-09-07 13:28] LABS: Hemoglobin 10.9 g/dL (13.5-17.5); Mean Corpuscular HGB 31.6 pg (26.0-34.0); Mean Corpuscular HGB Conc 35.2 g/dL (31.5-36.5); Mean Corpuscular Volume 90 fL (80-100); Mean Platelet Volume 9.9 fL (9.1-12.4); Platelet Count 144 K/mm3 (150-400); RDW Coefficient Variation 13.1 % (11.7-14.2); RDW Standard Deviation 42.6 fL (35.1-46.3); Red Blood Cell Count 3.45 M/mm3 (4.30-5.90); White Blood Cell Count 3.68 K/mm3 (4.00-11.30)
[2023-09-07 13:53] LABS: BAND PERCENT MAN 9 % (0-8); BASOPHILS PERCENT MAN 0 % (0-2); EOSINOPHILS PERCENT MAN 0 % (0-6); LYMPHOCYTES ABSOLUTE MAN 0.33 K/mm3 (0.84-5.20); LYMPHOCYTES PERCENT MAN 9 % (21-46); METAMYELOCYTE ABSOLUTE MAN 0.03 K/mm3 (0.00-0.00); METAMYELOCYTE PERCENT MAN 1 % (0-0); MONOCYTES PERCENT MAN 11 % (4-13); SEG NEUTROPHILS PERCENT MAN 70 % (41-73); TOTAL CELLS COUNTED 100
[2023-09-07 16:30] VITALS: BP 139/73
--- NOTE | 2023-09-07 18:18 | NUR ---
THIS AM WHEN DR RG ROUNDED THERE WAS A POSSIBILITY EXPRESSED THAT PT MIGHT BE ABLE TO D/C HOME TODAY. PT'S WBC HAS INCREASED WITH ANTIBIOTIC USE, BUT STILL REMAINS OUTSIDE THE RANGE THAT PT IS SAFE FOR D/C HOME PER DR RG. THIS EVENING PT CALLED UPSET AT 1600 STATING THAT HE HAD NOT BEEN GIVEN HIS 1600 MEDICATIONS, THIS RN WAS AT [facility] REMOVING MEDICATIONS AT THE TIME HE WAS CALLING . THIS RN TO ROOM SHORTLY AFTER 1600 TO ADMINISTER MEDICATIONS, PT EXPRESSED CONCERN THAT MEDCIATIONS HAVE NOT BEEN GIVEN THIS RN EDUCATES HIM THAT I AM HERE NOW FOR MEDICATION ADMINISTRTION. 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 CALLS DESK DURING THIS PT'S 1600 MEDICATION PASS AND NOTIFIES STAFF AT THE DESK THAT SHE WILL BE COMING TO PICK PT UP TONIGHT AND TAKING HIM HOME REGARDLESS OF IF DR Nielson/Cs HIM SHE IS ANGRY ABOUT FOOD TRAY, THIS RN DID NOT PERSONALLY SPEAK WITH . I DID HOWEVER UPDATE DR RG ABOUT THIS SITUATION, PT IS NOT SAFE TO D/C SHE STATES THAT PT WOULD NEED TO SIGN OUT AMA THIS EVENING IF WISHES TO TAKE HIM HOME. RADIOLOGICAL TECHNICIAN SANDY IS UPDATED ABOUT THIS WELL. PT IS PROVIDED WITH VISCOUS LIDOCAINE HE REQUESTED, HE IS EATING HIS DINNER TRAY, HE DENIES ANY CONCERNS AT THIS TIME. NOC SHIFT LEAD APPLICATIONS DEVELOPER PLANS TO SHOWER PT TONIGHT.
[2023-09-07 18:39] LABS: Vancomycin, Trough 12.1 ug/mL (5.0-10.0)
--- NOTE | 2023-09-07 18:56 | NUR ---
THIS RN AND HAD A CONVERSATION ABOUT AMA, AND PT AGREE THAT THEY WILL ALLOW ZOSYN TO COMPLETE AND TO HAVE VANCOMYCIN BEFORE LEAVING. STS "HE'S JUST BEEN THROUGH TOO MUCH THIS YEAR I WANT TO TAKE HIM HOME"
[2023-09-07 19:31] VITALS: BP 126/89
--- NOTE | 2023-09-07 20:42 | NUR ---
ASSUMPTION OF CARE AFTER RECEIVING REPORT FROM SIMONA RN, THIS RN ASSUMED CARE AT APPROX 1915. PATIENT SLEEPING DURING INITIAL ENCOUNTER, EASILY AROUSABLE TO VERBAL STIMULI. IS ALERT AND ORIENTED X4. FLAT, WITHDRAWN AFFECT NOTED. RECEIVED IN REPORT THAT PATIENT IS CHOOSING TO LEAVE AMA FOLLOWING IV VANCOMYCIN ADMINISTRATION. THIS RN DISCUSSED CHOICE WITH PATIENT. PATIENT CONTINUING TO CHOOSE TO LEAVE AMA. WHEN ASKED REASON BEHIND CHOICE, PATIENT STATES "I'VE BEEN THROUGH A LOT, AND I JUST WANT TO GO HOME." THIS RN PROVIDED EDUCATION REGARDING CHOICE. DISCUSSED INABILITY TO RECEIVE RESOURCES THAT CAN BE ARRANGED WITH TRADITIONAL DISCHARGE, SUCH CARE SERVICES AT HOME, MEDICATIONS, ETC. PATIENT DECLINED SERVICES. PATIENT's NOT PRESENT AT BEDSIDE DURING DISCUSSION. IV VANCOMYCIN INFUSING PER EMAR. EYE SPECIALIST NOTIFIED. TELEMETRY SHOWING SINUS 90's. BP STABLE. DENIES CHEST PAIN, PRESSURE. IS ON ROOM AIR, SATS >90%. DENIES SHORTNESS OF BREATH AT REST. OCCASSIONAL NONPRODUCTIVE COUGH NOTED. DENIES PAIN. PEG TUBE SITE ASSESSED - REDNESS AND SMALL BLISTERS NOTED. RECEIVING IV ABX FOR CELLULITIS. NONADHERENT GAUZE DRESSING IN PLACE, IS C/D/I. NO DRAINAGE NOTED. PATIENT ABLE TO REPOSITION HIMSELF IN BED INDEPENDENTLY. USES URINAL INDEPENDENTLY. CALL LIGHT IN REACH.
--- NOTE | 2023-09-07 21:03 | NUR ---
ARRIVED AT BEDSIDE. THIS RN CALLED TO ROOM TO DISCUSS LEAVING AMA. IV VANCOMYCIN CONTINUING TO INFUSE PER EMAR. THIS RN DISCUSSED PROCESS WITH BOTH PATIENT AND HIS . DURING THE DISCUSSION, BOTH THE PATIENT AND HIS EXPRESSED FRUSTRATION REGARDING BEING TOLD BY MD THAT HE WOULD BE ABLE TO DISCHARGE HOME TODAY, THEN BEING NOTIFIED THAT HE WOULD NEED TO STAY OVERNIGHT FOR FURTHER TREATMENT. DISCUSSED RESOURCES AVAILABE OUTSIDE OF THE HOSPITAL. THIS RN DISCUSSED CASE MANAGEMENT AVAILABILITY IN PROVIDING ADDITIONAL RESOURCES AND DISCUSSED TRADITIONAL DISCHARGE PROCESS, INCLUDING ARRANGING FOLLOW-UP APPOINTMENTS WITH ESTABLISHED PROVIDER, PRESCRIBING MEDICATIONS, AND ESTABLISHING A PLAN OF CARE WHILE HE IS AT HOME. WHILE IV VANCOMYCIN IS INFUSING, PATIENT AND HIS ARE GOING TO DISCUSS DECISION, AND TO LET THIS RN KNOW FOLLOWING IV THERAPY COMPLETION.
--- NOTE | 2023-09-07 21:53 | NUR ---
DISCHARGE AMA SUMMARY FOLLOWING COMPLETION OF IV VANCOMYCIN AND AFTER DISCUSSING WITH , PATIENT REPORTED THAT HE IS CHOOSING TO LEAVE AMA. PATIENT STATES, "I'M GOING HOME. I HAVE THE RESOURCES I NEED AT HOME." THIS RN FURTHER ENFORCED EDUCATION PROVIDED EARILER, SEE PREVIOUS NOTES. STATES "HE'S GOING HOME, NOBODY HAS BEEN THROUGH WHAT HE'S BEEN THROUGH." PATIENT REMAINS ALERT AND ORIENTED X4. ABLE TO PERFORM ADL's WITH MINIMAL TO NO ASSIST FROM STAFF. MD NOTIFIED BY THIS RN. PATIENT REQUESTING THAT HIS SIGN THE DECISION TO LEAVE AGAINST MEDICAL ADVICE DOCUMENT "SHE IS MY DECISION MAKER FOR EVERYTHING." THIS RN AND TANYA BRUNO WITNESSED SIGNATURE. IV's AND TELEMETRY REMOVED. PERSONAL BELONGINGS WITH PATIENT. AT APPROX 2150, PATIENT DISCHARGED AMA VIA WHEELCHAIR WITH ASSIST FROM HIS .
== END 2023-09-07 22:00 | disposition left against medical advice (07) | DRG 871 ==
LOC: ER 11:36 → PCU 15:53 → MEDS 15:53 → PCU 17:32
PROVIDERS: Student in an Organized Health Care Education/Training Program; ADMIT Family Medicine
DX: A41.9 Sepsis, unspecified organism (principal); J96.01 Acute respiratory failure with hypoxia; C78.01 Secondary malignant neoplasm of right lung; I50.22 Chronic systolic (congestive) heart failure; N17.9 Acute kidney failure, unspecified; L03.311 Cellulitis of abdominal wall; K94.22 Gastrostomy infection; B37.0 Candidal stomatitis; D84.9 Immunodeficiency, unspecified; D70.1 Agranulocytosis secondary to cancer chemotherapy; T45.1X5A Adverse effect of antineoplastic and immunosuppressive drugs, initial encounter; R50.81 Fever presenting with conditions classified elsewhere; K21.9 Gastro-esophageal reflux disease without esophagitis; C10.9 Malignant neoplasm of oropharynx, unspecified; M10.9 Gout, unspecified; I11.0 Hypertensive heart disease with heart failure; K52.9 Noninfective gastroenteritis and colitis, unspecified; R91.8 Other nonspecific abnormal finding of lung field; R10.84 Generalized abdominal pain; R00.0 Tachycardia, unspecified; Z87.891 Personal history of nicotine dependence; Z11.52 Encounter for screening for COVID-19; Z28.21 Immunization not carried out because of patient refusal; R10.9 Unspecified abdominal pain; R50.9 Fever, unspecified; Z79.899 Other long term (current) drug therapy
CPT/HCPCS: 0241U; 36415; 71046; 74022; 74177; 80048; 80053; 80076; 80202; 82272; 83690; 83735; 84484; 85025; 93005; 93010; 94762; 96361; 96365-59; 96375; 99281; 99285-25; A9270; C9113; J2270; J2543; J3370; J7030; J7050; J7120; Q9967

== ENCOUNTER → 2023-09-29 | Outpatient (CLI) | payer OTHER ==
[~2023-09-29] MED LIST changes: +DEXA4 PO; +Diflucan150 MG PO; +SILDENAFIL CITR50 MG PO; +TAMSULOSIN HCL0.4 M1 PO
== END | disposition home or self-care (01) ==
LOC: LAB 14:30 → LAB SHORT 14:30
DX: L02.415 Cutaneous abscess of right lower limb (principal)
CPT/HCPCS: 87070; 87075; 87186; 87205

== ENCOUNTER 2024-10-27 11:52 | Day surgery (SDC) | payer OTHER ==
[2024-10-27] VITALS (13 sets, daily range): BP systolic 103–134; BP diastolic 72–96
[~2024-10-27] VITALS: Ht 170.2 cm; Wt 62.6 kg
[~2024-10-27 11:52] MED LIST changes: +ALLO100 PO; +Bupivacaine 0.5% HCl 5 MG/ML 30MLVIAL ONE; +CeFAZolin Sodium 2,000 MG in NS 100 ML IV SCH; +Lactated Ringer's 1,000 ML IV SCH; +Lidocaine HCl 1% 30 ML SDV ONE
[2024-10-27] MEDS ORDERED: CeFAZolin Sodium 2,000 MG VIAL ONE (11:57)
--- NOTE | 2024-10-27 12:35 | NUR ---
Ambulatory in Day SurgeryPre-Op teaching done. Pt verbalizes understanding. History, Chart, Medications and Allergies reviewed before start of procedure.Patient confirms NPO status and agrees with scheduled surgery. Patient reports completing Chlorhexadine shower X2 prior to admission to hospital.Patient States Post-Procedure ride home has been arranged.
[2024-10-27] MEDS ORDERED: Midazolam HCl 1MG / ML 2ML Vial ONE (12:54)
[2024-10-27] MEDS ORDERED: propofoL 20 ML IV ONE (12:55)
[2024-10-27] MEDS ORDERED: FentaNYL Citrate 50 MCG/ML 2 ML Injection ONE (12:55)
[2024-10-27] MEDS ORDERED: Ondansetron HCl 2 MG / ML 2ML Vial ONE (12:55)
[2024-10-27] MEDS ORDERED: Dexamethasone Sod Phos 10 MG/ML 1ML VIAL ONE (12:55)
[2024-10-27] MEDS ORDERED: Lidocaine HCl 2% 20 ML MDV ONE (12:55)
[2024-10-27] MEDS ORDERED: Phenylephrine HCl 100 MCG/ML-NS 10MLSYR (1MG/10ML) ONE (13:21)
[2024-10-27] MEDS ORDERED: ePHEDrine Sulfate 50 MG/ML 1ML Injection IV PRN (13:35)
[2024-10-27] MEDS ORDERED: FentaNYL Citrate 50 MCG/ML 2 ML Injection IV PRN ×2 (13:35→13:40)
[2024-10-27] MEDS ORDERED: Albuterol 2.5 MG/3 ML VIAL INH PRN (13:35)
[2024-10-27] MEDS ORDERED: Prochlorperazine Edisylate 10 mg Vial IV PRN (13:35)
[2024-10-27] MEDS ORDERED: Ondansetron HCl 2 MG / ML 2ML Vial IV PRN (13:40)
[2024-10-27] MEDS ORDERED: HYDROmorphone HCl/Pf 1MG SYR IV PRN (13:40)
[2024-10-27] MEDS ORDERED: HYDROmorphone HCl 0.5 MG/0.5 ML SYR IV PRN (13:40)
[2024-10-27] MEDS ORDERED: ePHEDrine Sulfate 50 MG/ML 1ML Injection ONE (13:47)
[2024-10-27] MEDS ORDERED: HYDROcodone 5-APAP 325 TAB PO PRN (15:05)
--- NOTE | 2024-10-27 15:42 | NUR ---
Discharge instructions reviewed with patient. Patient verbalizes understanding. Copy given to patient to take home. Dressing to procedure site clean, dry, intact with no visible drainage, swelling, erythema or bruising noted. Patient States Post-Procedure ride home has been arranged. Discharged via wheelchair to private car for ride home.
== END 2024-10-27 23:00 | disposition home or self-care (01) ==
LOC: ORSCMMR 11:52
PROVIDERS: Surgery
PROC: 0DH68UZ Insertion of Feeding Device into Stomach, Via Natural or Artificial Opening Endoscopic (ICD-10-PCS; 2024-10-27)
PROC: 0D20XUZ Change Feeding Device in Upper Intestinal Tract, External Approach (ICD-10-PCS; principal; 2024-10-27 13:00)
PROC: 0JH60WZ Insertion of Totally Implantable Vascular Access Device into Chest Subcutaneous Tissue and Fascia, Open Approach (ICD-10-PCS; principal; 2024-10-27 13:00)
DX: C01 Malignant neoplasm of base of tongue (principal); Z78.9 Other specified health status; Z93.1 Gastrostomy status; I10 Essential (primary) hypertension; K21.9 Gastro-esophageal reflux disease without esophagitis; R56.9 Unspecified convulsions; Z87.891 Personal history of nicotine dependence; Z79.899 Other long term (current) drug therapy
CPT/HCPCS: 77001; A9270; C1788; J0690; J1100; J1642; J2250; J2371; J2405; J2704; J3010; J7120

== ENCOUNTER → 2024-11-30 | Outpatient (CLI) | payer OTHER ==
[~2024-11-30] MED LIST changes: -Bupivacaine 0.5% HCl 5 MG/ML 30MLVIAL ONE; -CeFAZolin Sodium 2,000 MG in NS 100 ML IV SCH; -Lactated Ringer's 1,000 ML IV SCH; -Lidocaine HCl 1% 30 ML SDV ONE
[2024-11-30 11:37] LABS: Appearance, Urine Clear (Clear); Bilirubin, Urine Neg (Neg); Blood, Urine Neg (Neg); Glucose Qualitative, Urine Neg (Neg); Ketones, Urine Neg (Neg); Leukocyte Esterase, Urine Neg (Neg); Nitrite, Urine Neg (Neg); Protein, Urine Neg (Neg); Specific Gravity, Urine 1.005 (1.003-1.022); Urobilinogen, Urine NORM (Normal); pH, Urine 6.5 (5.0-8.0)
[2024-11-30 11:42] LABS: Color, Urine Pale Yellow (P-Yellow)
== END | disposition home or self-care (01) ==
LOC: LAB SHORT 11:24 → LAB 11:24
PROVIDERS: Internal Medicine Hematology & Oncology
DX: C01 Malignant neoplasm of base of tongue (principal)
CPT/HCPCS: 81003